=== PATIENT | female | born 1940 | race Caucasian/White ===

== ENCOUNTER 2021-03-24 07:38 | Emergency (ER) | payer MEDICARE ==
[~2021-03-24] VITALS: Ht 160 cm; Wt 58.1 kg
[2021-03-24] MEDS ORDERED: TESSALON PERLE100 MG PO (07:57)
[2021-03-24] MEDS ORDERED: SUDOGEST120 MG PO (07:58)
[2021-03-24] MEDS ORDERED: ADVIL200 M1 PO (07:59)
== END 2021-03-24 11:58 | disposition home or self-care (01) ==
LOC: ED 07:38
DX: U07.1 COVID-19 (principal); Z88.5 Allergy status to narcotic agent
CPT/HCPCS: 80053; 81001; 83735; 85025; 99284-25; C9803; J7040; M0243; Q0244; U0003

== ENCOUNTER 2021-03-26 11:33 | Emergency (ER) | payer MEDICARE ==
[~2021-03-26] VITALS: Ht 160 cm; Wt 58.1 kg
[~2021-03-26 11:33] MED LIST: ADVIL200 M1 PO; SUDOGEST120 MG PO; TESSALON PERLE100 MG PO
[2021-03-26] MEDS ORDERED: ELIQUIS2.5 MG PO (13:15)
== END 2021-03-26 13:40 | disposition home or self-care (01) ==
LOC: ED 11:33
DX: I82.401 Acute embolism and thrombosis of unspecified deep veins of right lower extremity (principal); M79.661 Pain in right lower leg; Z85.3 Personal history of malignant neoplasm of breast; Z88.5 Allergy status to narcotic agent
CPT/HCPCS: 93971; 99283-25

== ENCOUNTER 2023-09-09 08:27 | Inpatient (IN) | payer MEDICARE, OTHER ==
[~2023-09-09] VITALS: Ht 160 cm; Wt 58.6 kg
[~2023-09-09 08:27] MED LIST changes: +ELIQUIS2.5 MG PO
[2023-09-09 08:56] LABS: BILIRUBIN, URINE NEGATIVE (negative); BLOOD/HGB, URINE LARGE (Negative); KETONE, URINE NEGATIVE (Negative); LEUK ESTERASE, URINE NEGATIVE (negative); NITRITE, URINE NEGATIVE (negative); PH, URINE 5.5 (5-7)
[2023-09-09] MEDS ORDERED: ondansetron HCL 4 MG/2 ML VIAL IV ONE (09:00)
[2023-09-09] MEDS ORDERED: SODIUM CHLORIDE 0.9% 1,000 ML IV ONE (09:00)
[2023-09-09 09:03] LABS: BASOPHILS 0.5 % (0-2); EOSINOPHILS 0.1 % (0-6); HEMATOCRIT 46.1 % (35.0-50.0); HEMOGLOBIN 15.5 g/dL (12.0-18.0); LYMPHOCYTES 15.7 % (24-44); MCH 30.8 (27-36); MCHC 33.5 g/dl (30-36); MCV 91.7 fl (81-99); MONOCYTES 5.1 % (0-12); NEUTROPHILS 78.6 % (39-80); PLATELET COUNT 200 K/uL (140-440); RBC 5.02 M/ul (4.3-5.7); RDW 12.7 (10.5-15.0)
[2023-09-09 09:08] LABS: EPITHELIAL CELLS, URINE 0 /lpf (0-1+); REFLEX CULTURE, URINE No (No)
[2023-09-09 09:18] LABS: ALBUMIN 3.7 g/dL (3.4-5.0); ALBUMIN/GLOBULIN RATIO 0.9 (1.1-2.4); ANION GAP 13.5 (7-21); BILIRUBIN, TOTAL 0.6 ng/dL (0.2-1.0); BUN/CREATININE RATIO 18.18 (6.0-28.6); CALCIUM 9.8 mg/dL (8.5-10.1); CREATININE, SERUM 1.1 mg/dL (0.55-1.02); POTASSIUM 3.5 mmol/L (3.5-5.1); PROTEIN, TOTAL 7.8 g/dL (6.4-8.2)
[2023-09-09] MEDS ORDERED: SODIUM CHLORIDE 0.9% 1,000 ML IV SCH (11:15)
[2023-09-09] MEDS ORDERED: HYDROmorphone HCL 1 MG/ML SYR IV PRN ×4 (11:15→16:45)
[2023-09-09] MEDS ORDERED: PIPERACILLIN/TAZOBACTAM 3.375 GM in DEXTROSE 5% 100 ML IV ONE (11:30)
[2023-09-09] MEDS ORDERED: ENOXAPARIN SODIUM 40 MG/0.4 ML SYR SUB-Q ONE (11:30)
[2023-09-09] MEDS ORDERED: ROCURONIUM BROMIDE 50 MG/5 ML SYR ONE (12:16)
[2023-09-09] MEDS ORDERED: propofoL 200 MG/20 ML VIAL ONE (12:16)
[2023-09-09] MEDS ORDERED: LIDOCAINE HCL 2% 5 ML SDV ONE (12:16)
[2023-09-09] MEDS ORDERED: KETAMINE in NS 50 MG/5 ML SYR ONE (12:17)
[2023-09-09] MEDS ORDERED: LIDOCAINE HCL 1% 30 ML SDV ONE (12:17)
[2023-09-09] MEDS ORDERED: DEXAMETHASONE SOD PHOS 4 MG/ML VIAL ONE ×3 (12:44→13:32)
[2023-09-09] MEDS ORDERED: ondansetron HCL 4 MG/2 ML VIAL ONE (12:44)
[2023-09-09] MEDS ORDERED: ACETAMINOPHEN 1,000 MG/100 ML VIAL ONE (12:45)
[2023-09-09] MEDS ORDERED: ePHEDrine sulfate 50 MG/ML AMP ONE (12:56)
[2023-09-09] MEDS ORDERED: SODIUM CHLORIDE 0.9% 20 ML IV ONE ×3 (12:56→13:37)
[2023-09-09] MEDS ORDERED: SUGAMMADEX SODIUM 200 MG/2 ML ML ONE (13:10)
[2023-09-09] MEDS ORDERED: Ropivacaine HCl 0.5% 30 ML VIAL ONE (13:31)
[2023-09-09] MEDS ORDERED: LACTATED RINGER'S 1,000 ML IV ONE (14:16)
[2023-09-09] MEDS ORDERED: BUPIVACAINE HCL 0.25% 50 ML MDV ONE (14:39)
[2023-09-09] MEDS ORDERED: LIDOCAINE 1% W/ EPI 1:200,000 30 ML SDV ONE (14:40)
--- NOTE | 2023-09-09 15:20 | CONS ---
[facility] [address], [place] [address] Signed DATE OF CONSULTATION: 09/09/2023 CHIEF COMPLAINT: Right lower quadrant abdominal pain. HISTORY OF PRESENT ILLNESS: Aleta is an 82-year-old female who has a history of an appendectomy and a hysterectomy for bleeding many years ago. Last night, she developed lower abdominal pain particularly on the right with nausea and vomiting. She got up this morning cooked [place]. She was not feeling better, so she finally came to emergency room for evaluation. She clearly is distended in that right lower quadrant and a little tender but no peritoneal signs or symptoms. It is soft and not particularly indurated. White count was normal. The urine showed an increased specific gravity and some blood. 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 She told me in her mind she has never had any symptoms with that. Therefore, I was asked to see her as a general surgeon on-call. In the meantime, she has received Zosyn and a shot of Lovenox. EKG is pending. PAST MEDICAL HISTORY: Left-sided breast cancer and COVID in 2020 with some blood clots. PAST SURGICAL HISTORY: Includes appendectomy, back surgery, hysterectomy for bleeding, left breast lumpectomy with radiation therapy and then no history of colonoscopy. SOCIAL HISTORY: She does not smoke or drink. She is a . She has three grown children and two step children. 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 She prefers the [facility] in [place], [place]. Her granddaughter is Sammi at [phone], who happens to work in our hospital and Dr. Aldair Farmer is her primary care provider. FAMILY HISTORY: She said there are cancers in the family. REVIEW OF SYSTEMS: She had 10 systems reviewed. She told me about her hysterectomy and the breast cancer and the COVID. ALLERGIES: Morphine and oxycodone. Electronically Signed By: DAMARIS ROMERO MD 09/09/23 1520 PATIENT NAME: ALETA WILEY CONSULTATION DATE OF : 36 REPORT #: [id number] PHYSICIAN: DAMARIS ROMERO MD PCP: ALDAIR FARMER MD REPORT IS CONFIDENTIAL AND NOT TO BE RELEASED WITHOUT AUTHORIZATION [facility] [address], [place] [address] Signed MEDICATIONS: None. PHYSICAL EXAMINATION: VITAL SIGNS: Her blood pressure is 158/78, heart rate is 76, respiratory rate 14, temperature is 98.0. She is 94% on room air. She is 5 feet 3 inches at 58 kg. Her body mass index is 22. GENERAL: Aleta is an 82-year-old female lying supine semi-recumbent in her ER bed. Our nurse and her granddaughter Sammi is with us. She is in no acute distress. She is not systemically ill or toxic. LUNGS: Clear to auscultation bilaterally. HEART: Regular rate and rhythm without murmur. ABDOMEN: Generally soft and flat except for the right lower quadrant where it is distended, but soft, very mildly tender and no peritoneal signs or symptoms. LABORATORY DATA: Her white blood cell count is 7.2, hemoglobin 15, neutrophils 78. Electrolytes unremarkable. BUN 20, creatinine 1.10, albumin 3.7. Liver function tests negative. Urine analysis showed the elevated specific gravity and some blood. RADIOGRAPHIC STUDIES: CT scan of abdomen and pelvis are reviewed along with the report. One can easily see the cecal volvulus. Interestingly, she has a chronically dilated right hydronephrosis with a stone at the UVJ. The radiologist says it has been present on previous x-rays. Apparently though, Aleta is not aware of this kidney stone. ASSESSMENT AND PLAN: Aleta is an 82-year-old female who presents with a cecal volvulus. The issues with the right kidney are chronic. She already has admit orders for room on our [facility] floor. We are going to go right from our ER over to the OR. We will get her laparotomy and right colectomy done shortly. I reviewed with her the surgery and the nature of the incision. She understands expected intraop and postop course. There is risk including, but not limited to bleeding, infection, scarring, change in contour of the skin, damage to bowel, damage to the ureter, damage to the kidney, incisional hernias, blood clots as well as strokes, heart attacks and pneumonia. She has expressed understanding and would like to proceed. Damaris Romero MD ALB/MODL Electronically Signed By: DAMARIS ROMERO MD 09/09/23 1520 PATIENT NAME: ALETA WILEY CONSULTATION DATE OF : 36 REPORT #: [id number] PHYSICIAN: ADMARIS ROMERO MD PCP: ALDAIR FARMRE MD REPORT IS CONFIDENTIAL AND NOT TO BE RELEASED WITHOUT AUTHORIZATION [facility] [address] [address] Signed /[id number] cc: MD Aldair Quinones MD Copies: DAMARIS ROMERO MD, RUSSEL J MD ~ Electronically Signed By: DAMARIS ROMERO MD 09/09/23 1520 PATIENT NAME: ALETA WILEY CONSULTATION DATE OF : 36 REPORT #: [id number] PHYSICIAN: DAMARIS ROMERO MD PCP: ALDAIR FARMER MD REPORT IS CONFIDENTIAL AND NOT TO BE RELEASED WITHOUT AUTHORIZATION
[2023-09-09] MEDS ORDERED: CEFTRIAXONE/SODIUM CHLORIDE 2 GM/100 ML PIGGYBACK IV SCH (15:27)
[2023-09-09] MEDS ORDERED: DEXTROSE 5% - LACTATED RINGERS 1,000 ML IV SCH ×2 (15:30→16:45)
[2023-09-09] MEDS ORDERED: IBLOOD GLUCOSE TEST STRIP 1 EA TEST VI PRN (15:30)
[2023-09-09] MEDS ORDERED: fentaNYL citrate 100 MCG/2 ML VIAL IV PRN (15:30)
[2023-09-09] MEDS ORDERED: ACETAMINOPHEN 650 MG SUPP PR PRN (15:30)
[2023-09-09] MEDS ORDERED: ACETAMINOPHEN 325 MG TAB PO PRN (15:30)
[2023-09-09] MEDS ORDERED: PROCHLORPERAZINE EDISYLATE 10 MG/2 ML VIAL IV PRN ×2 (15:30)
[2023-09-09] MEDS ORDERED: ondansetron HCL 4 MG/2 ML VIAL IV PRN ×3 (15:30→16:45)
[2023-09-09] MEDS ORDERED: PANTOPRAZOLE SODIUM 40 MG/10 ML VIAL IV SCH (15:30)
[2023-09-09] MEDS ORDERED: droPERidol 5 MG/2 ML VIAL IV PRN (15:30)
[2023-09-09] MEDS ORDERED: LIDOCAINE 2% VISCOUS 6 ML SYR TOP ONE (15:30)
[2023-09-09] MEDS ORDERED: NALOXONE HCL 0.4 MG SYR IV PRN (15:30)
--- NOTE | 2023-09-09 15:32 | NUR ---
09/09/23 1532 Sheets,Pratibha 1511 PT ARRIVED TO PACU ON 6L VIA MASK, ORAL AIRWAY IN PLACE AND RESP EVEN AND UNLABORED. PT NONAROUSABLE TO TACTILE STIMULI. VSS.
[2023-09-09 16:44] VITALS: BP 125/56
--- NOTE | 2023-09-09 16:52 | NUR ---
PT ARRIVED FROM SURGERY AT 1615, REPORT RECEIVED FROM STIVEN Real. PT RESTING AND DROWSY AT THIS TIME. CONTINUOUS PULSE OXIMETRY IN PLACE. FAMILY PRESENT UPON PT ENTERING ROOM BUT MOST LEFT SHORTLY AFTER ARRIVING. IV ABX STARTED. SCDS IN PLACE. RC EMPTIED UPON COMING TO ROOM, THERE IS A LITTLE CLEAR YELLOW URINE. ICE PACK IN PLACE TO ABDOMINAL SITE AT THIS TIME, DSG TO MIDLINE, CDI. PT REMAINS NPO AT THIS TIME. BED ALARM IN PLACE. CALL LIGHT WITHIN REACH. ALL PT CARE NEEDS MET AT THIS TIME, ALLOWING PT TO REST AT THIS TIME.
--- NOTE | 2023-09-09 17:19 | NUR ---
PT RESTING STILL AT THIS TIME. MORE ALERT BUT STILL VERY DROWSY. IV ABX COMPLETE, SWITCHED TO MAINTENANCE FLUIDS. BED ALARM REMAINS IN PLACE. CALL LIGHT WITHIN REAACH. GRANDDAUGHTER PRESENT AT BEDSIDE AT THIS TIME. REQUESTED WARM BLANKETS, HEAT TURNED UP. PT RESTING AT THIS TIME.
[2023-09-09 17:31] VITALS: BP 135/63
[2023-09-09 17:32] VITALS: BP 135/63
[2023-09-09 18:41] VITALS: BP 146/74
[2023-09-09 18:45] VITALS: BP 146/74
--- NOTE | 2023-09-09 18:52 | NUR ---
PT RESTING IN BED, MORE ALERT AT THIS TIME. COMPLETED ADMISSION INFORMATION WITH PATIENT. GRANDDAUGHTER HÉCTOR REMAINS IN THE ROOM AT BEDSIDE. EDUCATED PT THAT WHEN SHE STARTS FEELING PAIN TO PLEASE LET US KNOW SO WE CAN HELP KEEP HER PAIN UNDER CONTROL. INFORMED ALSO NPO THIS EVENING UNTIL MD CLEARS HER TO ADVANCE DIET. IV FLUIDS INFUSING. CALL LIGHT WITHIN REACH. VS STABLE. ALL PT CARE NEEDS MET AT THIS TIME.
--- NOTE | 2023-09-09 19:16 | NUR ---
Patient with eyes closed, appears comfortable, no distress, RR even and unlabored, report provided by cris OTTO.
[2023-09-09 19:35] VITALS: BP 134/64
--- NOTE | 2023-09-09 20:05 | NUR ---
Patient resting and awakes to voice, no complaints, states she does not hurt, VSS, Abdominal midline dressing intact, clean and dry, BT's hypoactive, patient denies nause, stubbs intact below level of bed, IV fluids infusing @ 00/h, SCD's on , Remains NPO. Continous pulse Ox on with sats >95%. call light within reach.
--- NOTE | 2023-09-09 22:13 | NUR ---
Patient continues resting with eyes closed, appears comfortable, no noted distress, rr even and unlabored, lights off, call light with in reach.
[2023-09-10] VITALS (9 sets, daily range): BP systolic 122–170; BP diastolic 52–79
--- NOTE | 2023-09-10 00:14 | NUR ---
Patient continues to rest with eyes closed, appears comfortable, no noted distress, RR even and unlabored, call light within reach.
--- NOTE | 2023-09-10 01:52 | NUR ---
Patient sleeping between care, VSS, starting to feel some discomfort in abdomine, requested and given pain medication. abd. dressing clean, dry and intact. stubbs intact and secured below the level of the bed. given a warm blanket and going back to sleep, verbalizing no further needs at this time.
--- NOTE | 2023-09-10 04:33 | NUR ---
Patient resting with eyes closed, appears comfortable, continous pulse ox maintaining >95%. RR even and unlabored. call light within reach.
[2023-09-10 05:31] LABS: BASOPHILS 0.3 % (0-2); HEMATOCRIT 39.4 % (35.0-50.0); HEMOGLOBIN 13.2 g/dL (12.0-18.0); LYMPHOCYTES 5.4 % (24-44); MCH 30.6 (27-36); MCHC 33.5 g/dl (30-36); MCV 91.5 fl (81-99); MONOCYTES 4.3 % (0-12); PLATELET COUNT 161 K/uL (140-440); RBC 4.31 M/ul (4.3-5.7)
--- NOTE | 2023-09-10 05:46 | NUR ---
Patient awake, VSS, Abominal dressing remains clean, dry and intact, Patient denies need for pain medication at this time. no noted distress, RR even and unlabored. call light withiin reach. Patient verbalizing no further needs at this time.
[2023-09-10 05:51] LABS: ANION GAP 12.7 (7-21); BUN/CREATININE RATIO 12.63 (6.0-28.6); CALCIUM 8.5 mg/dL (8.5-10.1); CREATININE, SERUM 0.95 mg/dL (0.55-1.02); MAGNESIUM 1.6 mg/dL (1.8-2.4); POTASSIUM 3.7 mmol/L (3.5-5.1)
--- NOTE | 2023-09-10 07:25 | EKG ---
[facility] [address] [facility] [place] [address] Signed Normal sinus rhythm Minimal voltage criteria for LVH, may be normal variant ( R in aVL ) Inferior infarct , age undetermined Anterolateral infarct , age undetermined Abnormal ECG No previous ECGs available Confirmed by NASIM ESPINOZA MD ([id number]) on 09/10/2023 7:25:38 AM Electronically Signed By: NASIM ESPINOZA 09/10/23 0725 PATIENT NAME: TAMMYANGELALETA Electrocardiogram DATE OF : 36 PHYSICIAN: NASIM ESPINOZA REPORT #: [id number] REPORT IS CONFIDENTIAL AND NOT TO BE RELEASED WITHOUT AUTHORIZATION
--- NOTE | 2023-09-10 08:13 | NUR ---
INTO TO PATIENT ROOM, PATIENT IN SUPINE POSITION, APPEARS TO BE GRITTING TEETHE. PATIENT COMPLAINED OF PAIN 7/10 ON PAIN SCALE. REPORTED DRY MOTH AND LIPS. ADMINISTERED PAIN MEDICATION PER OCT. DRESSING TO ABD C/D/I. BOWEL TONES HYPOACTIVE. PATIENT REPORTS SHE HAS NOT PASSED ANY GAS. CARO DRAINING CLEAR URINE TO BAG. PROVIDED SWAB AND WATER TO MOISTEN MOUTH. CALL LIGHT WITHIN REACH. NO OTHER NEEDS AT THIS TIME.
--- NOTE | 2023-09-10 08:28 | OR ---
[facility] [address], [place] [address] Signed DATE OF OPERATION: 09/09/2023 SURGEON: Damaris Romero MD PREOPERATIVE DIAGNOSIS: Cecal volvulus. POSTOPERATIVE DIAGNOSIS: Cecal volvulus. PROCEDURE: Ileocecectomy with end-to-end anastomosis hand-sewn in two layers. ESTIMATED BLOOD LOSS: Minimal. FINDINGS: Aleta indeed had a previous hysterectomy and the cecum had been scarred down to the fimbriae and there was a band of scar tissue on the proximal right colon resulting in the cecal volvulus. The right colon was decompressed and the proximal ileum was just a little dilated and therefore we decided to do an end-to-end anastomosis. 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 Yesterday night, she had this abrupt feeling of pain and swelling in her right lower quadrant. She had nausea and vomiting. She got up this morning, cooked breakfast for the crew. She was still having pain and swelling, so she came to the emergency room for evaluation. She is a little swollen in that area, but not overly tender and no peritonitis. White count was normal. CT scan of the abdomen and pelvis showed her cecal volvulus. She also has a chronically dilated right kidney with a stone at the UVJ. I have been asked to see her in the emergency room. In the meantime, she received a dose of Zosyn and Lovenox. I met with Aleta and her granddaughter, Sammi. We reviewed the above findings. I explained them the need for midline laparotomy with resection of the bowel and anastomosis. They understand the expected intraop and postop course. There is risk including, but not limited to bleeding, infection, scarring, change in contour of the skin, damage to bowel, anastomotic leak, incisional hernias and other unforeseen comorbidities. She had expressed understanding and wished to proceed. DESCRIPTION OF PROCEDURE: Electronically Signed By: DAMARIS ROMERO MD 09/10/23 0828 PATIENT NAME: ALETA WILEY OPERATIVE REPORT DATE OF : 36 REPORT #: [id number] PHYSICIAN: DAMARIS ROMERO MD PCP: ALDAIR FARMER MD REPORT IS CONFIDENTIAL AND NOT TO BE RELEASED WITHOUT AUTHORIZATION [facility] [address] [place] [id number] Signed Aleta was taken into the operating room and placed in the supine position under general endotracheal tube anesthesia. Velez catheter was inserted with return of clear yellow urine without difficulty. She was already on IV Zosyn and had been given Lovenox subcutaneously. SCDs were utilized. She was then prepped and draped in the usual sterile fashion. We used a previous periumbilical midline incision from her hysterectomy. We entered the upper abdomen without difficulty. She had a few adhesions of the omentum to the midline, which were taken down. She had a few adhesions in the right gutter as well as the left gutter. There was just a slight cautery injury on the sigmoid colon along the distal portion of the left white line of Toldt. I freed that up and we oversewed that in two layers with 3-0 Vicryl and 3-0 silk sutures. After this, we brought the cecum up and we could see the band of scar tissue from the fimbriae on her right fallopian tube. We divided the adhesions and we just freed up the cecum and a little bit of terminal ileum. Her right colon was nicely adherent to the white line of Toldt on the right side. We divided the colon close to the white line of Toldt with the linear stapler. We then divided the ileum very close to ileocecal valve with a linear stapler. We took down the small amount of mesentery with Pean clamps and 0 Vicryl ties. There was very little discrepancy between the ileum and the right colon. We decided to bring that together end-to-end in two layers with Vicryl and silk sutures. We closed the mesenteric rent with a running 3-0 Vicryl suture. The abdomen was irrigated and suctioned out until clear. We allowed the small bowel to rest back in its position and that short piece of proximal right colon. The rest of the right colon is adherent to the white line of Toldt. After this, we closed the midline fascia with interrupted #1 [id number] PDS sutures. Local anesthetic was injected at the umbilicus and above. We then irrigated the wound and suctioned out until clear. We closed the dermis with interrupted 3-0 Monocryl sutures. The skin edges were reapproximated with tr. Our anesthesia provider provided bilateral TAP blocks. Dry gauze and tape had been applied. We left the Velez catheter in place. She was awakened from her anesthesia, extubated in the OR, and taken to the recovery room in stable condition. Damaris Romero MD ALB/MODL /[id number] cc: Aldair Farmer MD Electronically Signed By: DAMARIS ROMERO MD 09/10/23 0828 PATIENT NAME: ALETA WILEY OPERATIVE REPORT DATE OF : 36 REPORT #: [id number] PHYSICIAN: DAMARIS ROMERO MD PCP: ALDAIR FARMER MD REPORT IS CONFIDENTIAL AND NOT TO BE RELEASED WITHOUT AUTHORIZATION [address] [address] Signed Damaris Romero MD Copies: ALDAIR FARMER MD, ANDREW L MD ~ Electronically Signed By: DAMARIS ROMERO MD 09/10/23 0828 PATIENT NAME: ALETA WILEY OPERATIVE REPORT DATE OF : 36 REPORT #: [id number] PHYSICIAN: DAMARIS ROMERO MD PCP: ALDAIR FARMER MD REPORT IS CONFIDENTIAL AND NOT TO BE RELEASED WITHOUT AUTHORIZATION
[2023-09-10] MEDS ORDERED: MAGNESIUM SULFATE 2 GM/50 ML BAG IV ONE (08:30)
[2023-09-10] MEDS ORDERED: ENOXAPARIN SODIUM 40 MG/0.4 ML SYR SUB-Q SCH (09:00)
[2023-09-10] MEDS ORDERED: MAGNESIUM SULFATE 50 ML IV ONE (11:01)
--- NOTE | 2023-09-10 11:52 | NUR ---
LE 1000 STARTED NEW IV TO RIGHT HAND, 20 G. ADMINISTERING MULTIPLE IV FLUIDS, ANTIBIOTICS AND MAG RIDER PER MAR TO BOTH IV SITES. PATIENT TOLERATED IV FLUIDS WELL. IV DIALUDID APPEARS TO ONLY LAST FOR ABOUT AN HOUR AND HALF BEFORE REPORTING PAIN THAT BECOMES SHARP AND UNTOLERABLE. ADMINISTERED PAIN MEDICATION PER MAR. LE 1045 PATIENT UP TO SIDE OF BED, CARO DC'D. DRAINED 100 ML OF YELLOW URINE FROM BAG. PROVIDED EDUCATION WITH DC OF CARO CATHETER. BRIEF APPLIED TO PATIENT THEN PATIENT UP TO RECLINER. 1130 PROVIDED EDUCATION TO PATIENT COUGHING AND DEEP BREATHING. AND SPLINTING WITH A PILLOW. PATIENT DEMONSTRATED UNDERSTANDING WITH IS.
--- NOTE | 2023-09-10 14:30 | NUR ---
NURSE WALKED TWO LAPS AROND MED SURG. WITH PATIENT.
--- NOTE | 2023-09-10 15:42 | NUR ---
ADMINISTERED 0.5MG OF IV DILAUDID, PATIENT UP AMBULATING IN AHN. APPEARS EXTRA HAPPY, AND UNABLE TO KEEP ATTENTION ON TASK. INCREASES FALL RISK. BLADDER SCAN 40-60MLS. PATIENT RESTING BACK IN RECLINER, REPORTS PAIN WELL CONTROLLED.
--- NOTE | 2023-09-10 16:00 | NUR ---
CALL TO DR. ROMERO, NEW ORDERS TO INCREASE D5LR TO 125ML, AND IV TYLENOL. NO BOLUS SECONDARY TO HISTORY OF NEPHRECTOMY.
[2023-09-10] MEDS ORDERED: ACETAMINOPHEN 1,000 MG/100 ML VIAL IV PRN (16:15)
--- NOTE | 2023-09-10 16:57 | NUR ---
Admin ofirmev 1000mg IV at this time for reports of 6/10 abdominal pain.
--- NOTE | 2023-09-10 17:00 | NUR ---
PATIENT AMBULATED IN HALLS X2 LAPS. TOLERATED WELL. IV TYLENOL APPEARS EFFECTIVE. PATIENT STATED " I AM SORE, BUT NOT LIKE I WAS THIS MORNING, I THINK WALKING IS REALLY HELPING". STBY IN THE HALLS WITH WALKER. CALL LIGHT WITHIN REACH. NO OTHER NEEDS, SITTING UP IN RECLINER. DAUGHTER AT BEDSIDE. ANSWERED DAUGHTERS QUESTIONS AND ADDRESSED CONCERNS. REASSURED DAUGHTER THAT BY GETTING PATIENT UP AND WALKING WOULD HELP WITH RECOVERY, GI MOTILITY, AND PRODUCING URINE OUTPUT. PATIENT CONTINUING TO USE INCENTIVE SPIROMETER, NOTED PATIENT APPEARS TO BE ABLE TO TAKE DEEPER BREATHS, NOW ABLE TO ELEVATE WAFER TO 1200.
--- NOTE | 2023-09-10 18:05 | NUR ---
PATIENT RESTING BACK IN BED, APPEARS CALM AND CONVERSING WITH FAMILY LAUGHING. RATES PAIN 2/10 ON PAIN SCALE. USING INCENTIVE SPIROMETER 1000 ML ELEVATING WAFER. LUNG SOUNDS CLEAR THROUGHOUT. BOWEL SOUNDS ACTIVE RIGHT SIDE GREATER THAN LEFT, NO FLATUS. PATIENT HAS AMBULATED IN HALLS X3 TODAY, STEADY ON FEET WITH WALKER TOLERATING WELL. D5LR INFUSING AT 125 ML/HR. BLADDER SCAN >80 ML, PATIENT VERBALIZES NO URGE TO VOID. CONTINUE TO MONITOR. MIDLINE SURGICAL SITE TO ABDOMEN OPEN TO AIR WITH MARITA INTACT, WNL. VS WNL. FAMILY AT BEDSIDE.
--- NOTE | 2023-09-10 19:28 | NUR ---
CALL TO DR. ROMERO, REPORTED PATIENT CONTINUES TO BE DUE TO VOID. REPORTED LAST BLADDER SCAN OF >80 MLS. NEW ORDER FOR LR BOLUS 1 LITER @250 MLS/HR TO INFUSE OVER 4 HOURS.
[2023-09-10] MEDS ORDERED: LACTATED RINGER'S 1,000 ML IV SCH (19:30)
--- NOTE | 2023-09-10 20:37 | NUR ---
awake, in bed, on room air, clear lungs. IVF and bolus infusing, no problems, still unable to void. will do bladder scan at 2200. Pt aware. midline abd incision with tr in place, edges well approximated slight red around tr sites. homa, louder on R than left, monica passing gas. tender R side. Medicated with Dilaudid 1mg IV per c/o abd pain. SCDS in place. cooperative, alert and oriented. family in room. Bed alarm placed on as precaution. pt and family aware. NPO, does own mouth care. IV site RW patent.
--- NOTE | 2023-09-10 21:38 | NUR ---
awake, denies c/o pain, watching tv. IVF infusing
--- NOTE | 2023-09-10 23:05 | NUR ---
BED ALRM GOING OFF, PT PULLING ON IVF TUBING, LEGS IN DEPENDENT POSITION, SCDS IN PLACE. PT INSTRUCTED ON IV/SCDS TUBING AND FALL PRECAUTIONS. STATED UNDERSTANDING. SLIGHT FORGETFULNESS NOTED. RECEPTIVE TO INSTRUCTIONS, LEANING TOWARS RIGHT, TRYING TO REACH FOR SOMETHING. BSC, VOIDED, 350CC YELLOW COLORED URINE. DID OWN JOYCE CARE. BACK TO BED, TOLERATED WELL. IVF INFUSING, SCDS BACK ON. BED ALRM ON. PT DROPPED ICE HIPS/WATER TO FLOOR, SEEMED UNAWARE, REORIENTED, PT APOLOGETIC, INSTRUCTED THAT IT HAPPENED SOMETIMES, FRESH ICE CUBES GIVEN. REACAHING FOR CALL LIGHT TRYING TO TURN OFF TV. TV CONTROL GIVEN AND WAS BLE TO TURN IT OFF HERSELF. PT AWARE OF NAME, PLACE AND SITUATION. REORIENTS EASILY. NPO, DOES OWN ORAL CARE, CONTINUE TO OBSERVE AND WILL NOTIFY MS IN AM POSSIBLE FORGETFULNESS DUE TO IV MED
[2023-09-11] VITALS (7 sets, daily range): BP systolic 131–175; BP diastolic 61–95
--- NOTE | 2023-09-11 01:36 | NUR ---
RSTING, EYES CLOSED, NO S/SX DISTRESS, ON ROOM AIR. IVF INFUSING. SCDS IN PLACE. BED ALRM ON PER FALL PRECAUTION. NPO
--- NOTE | 2023-09-11 03:22 | NUR ---
resting, on room air, no s/sx distress. IVF infusing, SCDS in place. NPO
--- NOTE | 2023-09-11 04:38 | NUR ---
Used call light, up to BRP 1PA/FWW, did much better. voided QS, yellow urine. Back to bed. C/o 03/17 ab dpain. midline abd insicion with tr in place, pinkish-reddish coloring CDI. mild distention more on R than L, lower abd. JESSICA more quiet tones than earlier in shift, denies passing gas. Medicated with Dilaudid 1mg IV. scds on, IVF infusing. Pleasant and cooperative. warm blanket given on request.
[2023-09-11 05:33] LABS: ANION GAP 10.1 (7-21); BUN/CREATININE RATIO 13.04 (6.0-28.6); CALCIUM 8.2 mg/dL (8.5-10.1); CREATININE, SERUM 0.92 mg/dL (0.55-1.02); PHOSPHORUS, INORGANIC 2.8 mg/dL (2.5-4.9); POTASSIUM 4.1 mmol/L (3.5-5.1)
--- NOTE | 2023-09-11 06:57 | NUR ---
DR ESPINOZA IN UNIT. ASKED ABOUT MEWS SCORE OF THIS PT. " NO NEED FOR LABS. NO NEED TO FOLLOW MEWS SCORE, PT IS DNR/DNI, SHE HAS MORPHINE FOR AIR HUNGER, HER SATS ARE WNL, WE JUST DO NOT KNOW WHY SHE IS TACHEIPNEIC, SHEIS ON ABX." CHARGE NURSE LISTENING TO THIS
--- NOTE | 2023-09-11 07:46 | NUR ---
GOT REPORT FROM DIRECTOR OF BUSINESS SYSTEMS NURSE. PATIENT HAS FAMILY IN THE ROOM. PATIENT LAYING IN BED. DENIES PAIN. DENIES ANY OTHER CARES AT THIS TIME. PATIENT WOULD LIKE TO FIND OUT WHEN SHE WILL BE ABLE TO EAT ANYTHING. PATIENT HAS IV FLUIDS RUNNING. PATIENT GIVEN HALF CUP OF ICE CHIPS.PATIENT HAS SCDS ON AND RUNNING. BED ALARM ON, BED IN LOW POSITION.
--- NOTE | 2023-09-11 10:25 | NUR ---
PATIENT REQUESTING PAIN MEDICATIONS. SHE IS HAVING PAIN WITH ANY MOVEMENT. SEE EMAR. PATIENT WOULD LIKE TO TAKE A NAP AND THEN TRY TO WALK. FAMILY LEFT SO PATIENT COULD SLEEP. PATIENT HAS IV ANTIBIOTICS RUNNING. DENIES ANY CARES AT THIS TIME.
--- NOTE | 2023-09-11 12:04 | NUR ---
PATIENT CURRENTLY SLEEPING IN BED. FAMILY IN ROOM. REGULAR RESPIRATIONS NOTED.
--- NOTE | 2023-09-11 13:14 | NUR ---
FAMILY IN ROOM WITH PATIENT. PATIENT SLEEPING, REGULAR RESPIRATIONS NOTED.
--- NOTE | 2023-09-11 13:47 | NUR ---
Tylenol started via IV for pain. Patient has multiple family members in room. Patient made 2 laps around the med surg floor. Denies any cares at this time.
--- NOTE | 2023-09-11 15:46 | NUR ---
PATIENT MOVED BACK INTO BED. PATIENT STATES PAIN HAS IMPROVED TO A 3/10 SINCE HAVING THE TYLENOL. PATIENT HAS ICE CHIPS AT BEDSIDE. PATIENT IS READY FOR NAP FAMILY IS LEAVING. SCDS ARE BACK ON.
--- NOTE | 2023-09-11 17:44 | NUR ---
PATIENT CALLED TO GO TO THE RESTROOM. PATIENT UP AND USED WALKER, NO CONCERNS. PATIENT TOOK ONE LAP AROUND MED SURG, TOLERATED GREAT BEFORE GETTING BACK IN BED. SCDS BACK ON. PATIENT DENIES ANY OTHER CARES. SHE IS GOING TO GO BACK TO SLEEP. LIGHTS TURNED DOWN.
--- NOTE | 2023-09-11 18:42 | NUR ---
PATIENT TALKING TO FAMILY IN THE ROOM. SHE HAS IV FLUIDS RUNNING. DENIES ANY CARES.
--- NOTE | 2023-09-11 19:26 | NUR ---
REPORT RECEIVED FROM HANNAH. PT AWAKE, IVF INFUSING. HAD JUST GOT UP TO BR A FEW MINUTES AGO, VOIDED BRP, BACK TO BED SBA/FWW, NO C/O PAIN OR SOB. NOT PASSING GAS. BACK IN BED, SCDS IN PLACE. NPO TOLERATING ICE CHIPS. FAMILY IN ROOM
--- NOTE | 2023-09-11 19:43 | NUR ---
c/o 02/14 abd pain, medicated with Dilaudid 1mg IV
--- NOTE | 2023-09-11 21:12 | NUR ---
COOPERATIVE WITH VITALS, NO FURTHER C/O PAIN. OR N/V. IVF INFUSING, SCDS IN PLACE, MIDLINE ABD INCISIN WITH MARITA SLIGHT REDNESS AROUND INCISION. BURPING BUT DENIES PASSING RECTAL GAS, HAD VOIDED EARLIER.
--- NOTE | 2023-09-11 23:17 | NUR ---
RESTING, NO DISTRESS, IVF INFUSING
--- NOTE | 2023-09-11 23:19 | NUR ---
RESTING, NO DISTRESS, IVF INFUSING
--- NOTE | 2023-09-12 01:36 | NUR ---
PATIENT CALLED TO USE THE BATHROOM. 1 SBA USING WALKER. FRESH PULL UPS PROVIDED. PATIENT IS BACK IN BED. WARM BLANKET PROVIDED. SCD'S BACK ON. DENIES FURTHER NEEDS AT THIS TIME. BED ALARM ON FOR SAFETY.
--- NOTE | 2023-09-12 02:51 | NUR ---
PT AWAKES EASILY, TURNS AND REPOSITIONS SELF IN BED. IVF INFUSING, NO C/O PAIN. AND INCISION NO CHANGS, BURPING BUT DENIES PASSING RECTAL FLATUS. SLIGHT ABD DISTENTION PRESENT. BOWEL TONES HYPOACTIVE AND MORE DISTANT THAN EARLIER ON SHIFT. VOIDING QS, SCDS IN PLACE
[2023-09-12 04:04] VITALS: BP 174/74
--- NOTE | 2023-09-12 04:12 | NUR ---
used call light, up tobr, voided QS, yellow urine, back to bed !PA/FWW. noted that R hand was swollen. and leaking from IV insertion site. dc'd tip intact, 2x2 in place. changed to RAC SL now being used as continuous . arm elevated with pillows. COoperative, no c/o pain
--- NOTE | 2023-09-12 05:19 | NUR ---
pt c/o abd pain after sneezing. medicated with Dilaudid 0.5mg IV. Has been medicated total of 2 times with dilaudid this shift per abd pain. On room air, burping but not passing rectal flatus yet, abd midline incision with tr and reddish edges CDI. faint hypoactive bowel tones present. scds, IVF infusing. no c/o n/v. has walked to br 1PA/FWW tolerated well. pleasant, alert oriented, cooperative.
--- NOTE | 2023-09-12 05:25 | NUR ---
PATIENT GOT UP TO USE THE BATHROOM SBA USING WALKER AND BACK TO BED. ALARM ON FOR SAFETY. LAB WAS IN THE ROOM TO DRAW BLOOD.
[2023-09-12 05:34] LABS: BASOPHILS 0.2 % (0-2); EOSINOPHILS 1.6 % (0-6); HEMATOCRIT 38.2 % (35.0-50.0); HEMOGLOBIN 12.8 g/dL (12.0-18.0); LYMPHOCYTES 20.7 % (24-44); MCH 30.9 (27-36); MCHC 33.6 g/dl (30-36); MCV 91.9 fl (81-99); MONOCYTES 7.3 % (0-12); NEUTROPHILS 70.2 % (39-80); PLATELET COUNT 148 K/uL (140-440); RBC 4.16 M/ul (4.3-5.7)
[2023-09-12 05:47] LABS: ANION GAP 12.4 (7-21); BUN/CREATININE RATIO 6.89 (6.0-28.6); CALCIUM 8.3 mg/dL (8.5-10.1); CREATININE, SERUM 0.87 mg/dL (0.55-1.02); MAGNESIUM 1.8 mg/dL (1.8-2.4); PHOSPHORUS, INORGANIC 2.7 mg/dL (2.5-4.9); POTASSIUM 3.4 mmol/L (3.5-5.1)
[2023-09-12] MEDS ORDERED: MAGNESIUM SULFATE 2 GM/50 ML BAG IV ONE (06:15)
[2023-09-12] MEDS ORDERED: POTASSIUM CHLORIDE 40 MEQ,LIDOCAINE HCL 1% 40 MG in DEXTROSE 5% 500 ML IV ONE (06:15)
--- NOTE | 2023-09-12 06:23 | NUR ---
dr Sandhu in room. new orders to decrease IVF to 100cc/hr done at this time, mag paz started. pt informed, no questions asked
--- NOTE | 2023-09-12 07:34 | NUR ---
PT SITTING UP IN THE CHAIR DOING SELF CARE AT TIME OF SHIFT REPORT. AGREES SHE IS COMFORTABLE HAS NEEDED ITEMS IN REACH.
[2023-09-12 09:41] VITALS: BP 174/82
--- NOTE | 2023-09-12 10:06 | NUR ---
PT HAS BEEN UP TO TOILET X2 THIS SHIFT, CALLS APPROPRIATELY. IV SITE WENT BAD NEW ONE ESTABLISHED ABX RUNNING NOW. PT DOES HER OWN ORAL AND PERSONAL CARES DENIES NEED OF OTHER ITEMS. AGREES SHE WILL AMBULATE THIS SHIFT SEVERAL TIMES. DENIES PAIN WHILE RESTING STILL IN BED STATES SHE HURTS WITH MOVEMENT.
--- NOTE | 2023-09-12 11:00 | NUR ---
UR NOTE [facility]CG BOWEL SURGERY: SMALL INTESTINE RESECTION (ISC) 09/09/23 MET CLINICAL INDICATIONS FOR PROCEDURE GL DAY 1 09/10/23 MET GL DAY 2 09/11/23 VARIANCE GL DAY 3 09/12/23 VARIANCE GL DAY 3
--- NOTE | 2023-09-12 11:07 | NUR ---
ROUNDS. PT EXPRESSED POSITIVE ATTITUDE AND GOOD UNDERSTANDING OF PLAN OF CARE. FACILITATED STORY-TELLING; LISTENED EMPATHETICALLY; PROVIDED HOSPITALITY; PROVIDED SILETN PRAYER.
--- NOTE | 2023-09-12 11:15 | NUR ---
Spoke with Gricel. She [place] She is active and plans on dc to home. She lives alone, states her grandson and ranch hands all live near and will assist her. She also states her daughter will stay with her. She denies need for any DME and also denies any financial issues. Her granddaughter works here. She stopped by and stated concern for pt to go home alone. She did say her mom with stay with pt when she discharges. No needs from CM at this time. Pt states she may have to return to surgery.
--- NOTE | 2023-09-12 11:50 | NUR ---
PT UP TO THE TOILET THEN AMBULATES 6 FULL LAPS IN THE AHN. RETURNS TO REST IN THE RECLINER, AGREES SHE IS COMFORTABLE. CALL LIGHT AND NEEDED ITEMS AT CHAIRSIDE
[2023-09-12 13:25] VITALS: BP 169/77
--- NOTE | 2023-09-12 13:53 | NUR ---
PT CONTINUES IN THE CHAIR VISITORS PRESENT X2, DENIES NEED OF ANYTHING
--- NOTE | 2023-09-12 14:15 | NUR ---
PT FROM CHAIR TO TOILET SBA, RETURNS TO BED TO REST FOR TIME. FAMILY PRESENT X1
--- NOTE | 2023-09-12 15:58 | NUR ---
PT UP TO AMBULATE THE HALLS. 6 LAPS WELL TOLERATED NO C/O PAIN
[2023-09-12 17:26] VITALS: BP 165/69
--- NOTE | 2023-09-12 17:32 | NUR ---
PT UP TO AMBULATE AGAIN. SHE TOLERATES 6 LAPS IN THE AHN THEN RETURNS TO BED. VISITOR PRESENT X1
--- NOTE | 2023-09-12 18:54 | NUR ---
PT UP AMBULATING THE AHN WITH HER GRANDDAUGHTER
[2023-09-12 19:44] VITALS: BP 166/81
--- NOTE | 2023-09-12 20:03 | NUR ---
pt was walking hallways at begining of shift 1PA/FWW, did 6 laps, back to bed. C/o abd pain 4/10 medicated with Dialudid 0.5mg IV. IVF infusing RAC, intact. On room air, midline abd incision with tr pinkish colored around incision. CDI, no drainage. JESSICA bowel tones, more louder on RLQ. not passing rectal flatus, c/o burping. NPO does own oral care. voiding prior to getting into bed. SCDS off at her requests. no edema to R hand, improved. Pleasant and cooperative. Family in room
--- NOTE | 2023-09-12 23:51 | NUR ---
PT USED CALL LIGHT, UP TO BRP, VOIDED, BACK TO BED 1PA/FWW, IVF INFUSING, SCDS IN PLACE, NO FURTHER C/O PAIN, NOT PASSING GAS
[2023-09-13] VITALS (9 sets, daily range): BP systolic 148–186; BP diastolic 67–84
--- NOTE | 2023-09-13 01:00 | NUR ---
PATIENT USED THE CALL LIGHT. WAS UP TO THE BATHROOM AND BACK TO BED SBA USING WALKER. DENIES OTHER NEEDS AT THIS TIME. CALL LIGHT WITHIN REACH. BED ALARM ON FOR SAFETY.
--- NOTE | 2023-09-13 01:36 | NUR ---
Resting, eyes closed, onroom air, no s/sx distress. IVF infusing. SCDS off her requests earlier.
--- NOTE | 2023-09-13 02:00 | NUR ---
WAS UP TO THE BATHROOM SBA AND BACK TO BED. PATIENT C/O NOT ABLE TO GET SLEEP. PRIMARY RN WAS IN THE ROOM.
--- NOTE | 2023-09-13 02:06 | NUR ---
Used call light, up to brp, voided, backa to bed, 1PA/FWW. c/o abd pain. midline incision no changes, JESSICA all quads, soft, tender, mild distention lower abd. not passing flatus rectally yet. Medicated with 1mg IV Dilaudid per abd pain, crampng and "so I can go to sleep" pt stated. NPO does own oral care, tolerating well.
--- NOTE | 2023-09-13 03:44 | NUR ---
Resting, eyes closed. no s/sx distress, IVF infusing, turns self in bed.
--- NOTE | 2023-09-13 05:46 | NUR ---
Pt has slept off and on this shift. On room air, Up to br several times, voiding QS, not passing gas, lower abd slight distention. midline abd incision with tr, pinkish colored around incision, CDI. bowel tones timpanic and hypoactive RLQ. not passing rectal flatus. Has been medicated with DIlaudid 2x's per abd pain. NPO does own oral care, tolerating well, no n/v. effective. IVF infusing. Alert, oriented, cooperative, 1PA. family in room
--- NOTE | 2023-09-13 08:06 | NUR ---
PT SITTING UP IN CHAIR THIS MORNING DURING MORNING ROUNDS. GRANDDAUGHTER WAS ALREADY PRESENT THIS MORNING AND WALKED WITH PT IN HALLWAYS PT REPORTS. IV FLUIDS INFUSING AT THIS TIME. DENIES PAIN AT THIS TIME. PT INFORMED SHE WILL MOST LIKELY BE GOING TO SURGERY LATER THIS AFTERNOON, WILL HAVE AN UPDATED TIME IT GETS CLOSER. PT REMAINS NPO AT THIS TIME FOR SURGERY. PT DENIES FLATUS, BURPING. ALL PT CARE NEEDS MET AT THIS TIME, CALL LIGHT WITHIN REACH.
--- NOTE | 2023-09-13 08:30 | NUR ---
Pt. walked to bathroom with fww. Denies needs at this time after being returned to bed. 400 ml of clear yellow urine.
--- NOTE | 2023-09-13 09:56 | NUR ---
PT RESTING IN BED. IV ABX INFUSING. STUDENT ASSISTED UP TO BATHROOM SBA D/T LINES. ALL PT CARE NEEDS MET AT THIS TIME. CALL LIGHT WITHIN REACH.
--- NOTE | 2023-09-13 10:40 | NUR ---
PT COMPLETING THE WIPE DOWN FOR SURGERY THIS AFTERNOON WITH CUTTER GAS. GOWN CHANGED. IV ABX INFUSING. PT STATES PAIN TO ABDOMEN IS ABOUT 5/10, DENIES NEED FOR PAIN MEDS. REMAINS NPO. ALL CARE NEEDS MET AT THIS TIME. CALL LIGHT WITHIN REACH.
[2023-09-13] MEDS ORDERED: NALOXONE HCL 0.4 MG SYR IV PRN (11:00)
[2023-09-13] MEDS ORDERED: ondansetron HCL 4 MG/2 ML VIAL IV PRN (11:00)
[2023-09-13] MEDS ORDERED: fentaNYL citrate 100 MCG/2 ML VIAL IV PRN (11:00)
[2023-09-13] MEDS ORDERED: IBLOOD GLUCOSE TEST STRIP 1 EA TEST VI PRN (11:00)
--- NOTE | 2023-09-13 11:23 | NUR ---
ROUNDS. PT NOT IN ROOM. UNABLE TO VISIT. PROVIDED PRAYER. LEFT PRAYER CARD AND CONTACT CARD.
--- NOTE | 2023-09-13 11:30 | NUR ---
PT FAMILY ARRIVED TO FLOOR, SHORTLY AFTER SURGERY ARRIVED TO TAKE PT. IV SWITCHED TO LR/STRAIGHT TUBING. SCDS IN PLACE. ALL PREOP CLEANSE COMPLETED. QUICK HANDOFF GIVEN TO KARTHIK IN SURGERY. FAMILY WENT DOWN WITH PT.
[2023-09-13] MEDS ORDERED: propofoL 200 MG/20 ML VIAL ONE (11:31)
[2023-09-13] MEDS ORDERED: LIDOCAINE HCL 1% 30 ML SDV ONE (11:31)
[2023-09-13] MEDS ORDERED: dexmedeTOMIDine HCl 200 MCG/2 ML VIAL ONE (11:31)
[2023-09-13] MEDS ORDERED: DEXAMETHASONE SOD PHOS 4 MG/ML VIAL ONE ×2 (11:31→11:33)
[2023-09-13] MEDS ORDERED: ondansetron HCL 4 MG/2 ML VIAL ONE (11:31)
[2023-09-13] MEDS ORDERED: ROCURONIUM BROMIDE 50 MG/5 ML SYR ONE (11:31)
[2023-09-13] MEDS ORDERED: SODIUM CHLORIDE 0.9% 60 ML IV ONE (11:32)
[2023-09-13] MEDS ORDERED: KETAMINE in NS 50 MG/5 ML SYR ONE (11:32)
[2023-09-13] MEDS ORDERED: ACETAMINOPHEN 1,000 MG/100 ML VIAL ONE (11:32)
[2023-09-13] MEDS ORDERED: Ropivacaine HCl 0.5% 30 ML VIAL ONE (11:32)
--- NOTE | 2023-09-13 11:46 | NUR ---
PATIENT CURRENTLY IN OR. WILL FOLLOW UP WITH HER AT A LATER TIME.
[2023-09-13] MEDS ORDERED: LACTATED RINGER'S 1,000 ML IV ONE (14:28)
[2023-09-13] MEDS ORDERED: SUGAMMADEX SODIUM 200 MG/2 ML ML ONE (15:03)
--- NOTE | 2023-09-13 15:53 | NUR ---
09/13/23 1553 Joanne,Pratibha 1525 PT ARRIVED TO PACU ON 6L VIA MASK, RESP EVEN AND UNLABORED WITH ORAL AIRWAY IN PLACE. IV IN RIGHT ARM, SMALL AMOUNT OF SWELLING AND BRUISE NOTED ABOVE IV IN RIGHT UPPER FOREARM. NEW IV PLACED IN RIGHT WRIST, BRIST BLOOD RETURN NOTED AND FLUSHES EASILY. 1549 PT SLIGHTLY REACTIVE AND ORAL AIRWAY AND MASK REMOVED. PT EASILY FALLS BACK TO SLEEP WITH SNORING NOTED.
--- NOTE | 2023-09-13 15:55 | PATH ---
[facility] [address] [place], [place] [address] Signed SPECIMEN(S): A CECUM AND TERMINAL ILEUM SPECIMEN SOURCE: A. CECUM AND TERMINAL ILEUM CLINICAL HISTORY: Cecal volvulus. FINAL PATHOLOGIC DIAGNOSIS: Cecum and terminal ileum: - Cecum and terminal ileum with mucosal and submucosal vascular congestion and hemorrhage. - Negative for atypical epithelial features. - Three areas of partial mucosal disruption. - See comment. COMMENT: The clinical history of volvulus is noted and is compatible with the histologic findings. JVR:clv MICROSCOPIC EXAMINATION: Histologic sections of all submitted blocks are examined by light microscopy. These findings, together with the gross examination, support the pathologic diagnosis. GROSS DESCRIPTION: The specimen, labeled and designated "Ashley, Ilir, " and designated on the requisition "cecum and terminal ileum," is received in formalin and consists of one unoriented segment of large bowel that is 12.5 cm in length and has an average internal circumference of 10.5 cm. The terminal ileum is a 6.5 cm in length and has an average internal circumference of 3.5 cm. No appendix is grossly identified. The serosal surface is pink focally congested with adherent membranous tissue. The cecum is partially adherent to the terminal ileum. Upon opening the mucosa is pink and finely granular with three areas of red disruption and discoloration that range in size from 1.4 x 0.9 cm up to 1.7 x 1.5 x 0.5 cm. Sectioning through the areas of discoloration reveals submucosal hemorrhage and are collectively 7 cm from the distal resection margin and 8.5 cm from the proximal PATIENT NAME: ALETA WILEY PATHOLOGY DATE OF : 36 REPORT #: [id number] PHYSICIAN: ERICK PATHOLOGY PCP: ALDAIR BAUER MD REPORT IS CONFIDENTIAL AND NOT TO BE RELEASED WITHOUT AUTHORIZATION [facility] [address] [place], [place] [address] Signed resection margin. The bowel wall is edematous. The terminal ileum has an average wall thickness of 0.7 cm. The large bowel has an average wall thickness of 1.0 cm. Youth Care Worker sections are submitted in five cassettes. Cassette Summary: (A1) proximal resection margin, shave (A2) distal resection margin, shave (A3-A5) areas of mucosal disruption and discoloration FB (under the direct supervision of a pathologist) The Gross Description was prepared using a voice recognition system. The report was reviewed for accuracy; however, sound-alike word errors, addition and/or deletions may occur. If there is any question about this report, please contact Client Services. PERFORMING LABORATORY: Technical component was performed by [facility], [address] [place] [id number] (CLIA# [id number]). Professional interpretation was performed by [facility], [address] [place] [id number] (CLIA#: [id number]). Diagnostician: Kj Brown MD Pathologist Electronically Signed 09/13/2023 Copies: ~ PATIENT NAME: ALETA WILEY PATHOLOGY DATE OF : 36 REPORT #: [id number] PHYSICIAN: ERICK PATHOLOGY PCP: ALDAIR BAUER MD REPORT IS CONFIDENTIAL AND NOT TO BE RELEASED WITHOUT AUTHORIZATION
--- NOTE | 2023-09-13 17:18 | NUR ---
PT ARRIVED TO FLOOR FROM SURGERY AT 1635 WITH MAIL READER. PT IS VERY SLEEPY WILL AWAKEN SLIGHTLY TO VOICE AND FALLS BACK ASLEEP. VS STABLE. FAMILY CURRENTLY AT BEDSIDE AND UPDATE GIVEN. IV FLUIDS RESTARTED. RC CLEAR YELLOW. MIDLINE DSG IS CDI. SCDS IN PLACE. CALL LIGHT PLACED WITHIN REACH. CONT. PULSE OXIMETRY IN PLACE. ALL PT CARE NEEDS MET AT THIS TIME.
--- NOTE | 2023-09-13 18:03 | NUR ---
ISRRAEL NOTIFIED OF ELEVATED BP THIS EVENING SINCE COMING BACK, AT THIS TIME PT SLEEPING AND NOT C/O PAIN. VERY RESTFUL. AT THIS TIME NO TREATMENT FOR BP. ALSO, INFORMED THAT DR. ZAPATA WILL BE HERE TOMORROW TO EVALUATE FOR STONE THAT WAS FOUND ON IMAGING, FAMILY NOTIFIED. POSSIBLY DO LITHO W/ STENT TUESDAY. WILL FOLLOW-UP MORE ON THIS IN MORNING WHEN DR. ZAPATA ROUNDS.
--- NOTE | 2023-09-13 19:45 | NUR ---
REPORT RECEIVED FROM DAY SHIFT RN. PT LYING IN BED RESTING WITH EYES CLOSED. AWAKENS EASILY. ANSWERS QUESTIONS APPROPRIATELY THEN QUICKLY DRIFTS BACK TO SLEEP. POST OP VS OBTAINED. PT DENIES PAIN. REPORTS SHE IS COMFORTABLE. MIDLINE ABD INCISION CDI WITH DRESSING INTACT. CARO PATENT WITH CLEAR YELLOW URINE. SpO2 96% ON RA. HR 70'S. DAUGHTER AT BEDSIDE. DENIES NEEDS. WHITE BOARD UPDATED. CALL LIGHT IN REACH.
--- NOTE | 2023-09-13 21:45 | NUR ---
PATIENT IS RESTING IN BED LAYING ON HER BACK. DENIES ANY PAIN AT THIS TIME. CARO CATH. EMPTIED. DRAINING GOOD WITH CLEAR YELLOW URINE. ALL NECESSARY ITEMS WITHIN REACH.
[2023-09-14] VITALS (9 sets, daily range): BP systolic 128–178; BP diastolic 57–84
--- NOTE | 2023-09-14 00:47 | NUR ---
Patient laying in bed on back. SCDs in place. IV fluids running per orders. Denies pain or discomfort. All necessary items within reach.
--- NOTE | 2023-09-14 02:17 | NUR ---
Patient is resting in bed. Denies any pain at this time. Velez draining well with yellow urine. IV infusing per orders see MAR. Midline dressing is CDI.
[2023-09-14 05:31] LABS: BASOPHILS 0.4 % (0-2); HEMATOCRIT 40.9 % (35.0-50.0); HEMOGLOBIN 13.8 g/dL (12.0-18.0); LYMPHOCYTES 7.7 % (24-44); MCH 30.6 (27-36); MCHC 33.8 g/dl (30-36); MCV 90.5 fl (81-99); MONOCYTES 4.5 % (0-12); NEUTROPHILS 87.4 % (39-80); PLATELET COUNT 196 K/uL (140-440); RBC 4.52 M/ul (4.3-5.7)
[2023-09-14 05:44] LABS: ANION GAP 14.5 (7-21); BUN/CREATININE RATIO 7.14 (6.0-28.6); CALCIUM 8.7 mg/dL (8.5-10.1); CREATININE, SERUM 0.98 mg/dL (0.55-1.02); MAGNESIUM 1.7 mg/dL (1.8-2.4); PHOSPHORUS, INORGANIC 3.4 mg/dL (2.5-4.9); POTASSIUM 3.5 mmol/L (3.5-5.1)
--- NOTE | 2023-09-14 06:12 | OR ---
[facility] [address] [place], [place] [address] Signed DATE OF OPERATION: 09/13/2023 SURGEON: Damaris Romero MD PREOPERATIVE DIAGNOSES: Slightly angulated and tight ileocolonic anastomosis resulting in high-grade partial small-bowel obstruction. POSTOPERATIVE DIAGNOSES: Slightly angulated and tight ileocolonic anastomosis resulting in high-grade partial small-bowel obstruction. PROCEDURES: 1. Completion right colectomy with resection of additional terminal ileum and the distal right colon around to the proximal transverse colon. 2. Isoperistaltic tnzz-fz-slbe ileocolonic anastomosis hand-sewn in two layers. 3. Minimal lysis of adhesions. ESTIMATED BLOOD LOSS: Minimal. 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 We found that at the time of surgery, she had a previous hysterectomy in the fimbriae from her right fallopian tube had caused some scarring circumferentially on the proximal right colon, which was resulting in high-grade partial obstruction, but she got by with that for years because of the liquid stool. Eventually though, the cecum dilated and it finally twisted and became a volvulus. That caused quite a bit of pain and she ended up in the hospital. We took her same-day and the colon was nicely attached to the white line of Toldt. We also know that she has a fairly large kidney stone at the right UVJ and it is chronic and her right kidney is rather large and dilated and the radiologist noted that is chronic as well. When we found that the colon was nicely adherent to the white line of Toldt, we did ileocecectomy and we sewed the small bowel to the mid right colon end to end in two layers hand-sewn. We thought that was sufficient and I could palpate the tip of my finger and thumb on the anastomosis. However, she was slow to pass gas. She moderately distended. She was burping and took on quite a bit of IV fluids as well. We finally caught her up and she was urinating quite well. This morning, she was still distended and I have been talking to Aleta and her family each day about the possibility we might have to go back and redo that anastomosis. In order to do that, we would just do a completion right colectomy and then do a [id number]-fg-rgha Electronically Signed By: DAMARIS ROMERO MD 09/14/23611 PATIENT NAME: ALETA WILEY OPERATIVE REPORT DATE OF : 36 REPORT #: [id number] PHYSICIAN: DAMARIS ROMERO MD PCP: ALDAIR BAUER MD REPORT IS CONFIDENTIAL AND NOT TO BE RELEASED WITHOUT AUTHORIZATION [address] [address] Signed isoperistaltic ileocolonic anastomosis to the proximal transverse colon hand-sewn in two layers. After talking with Aleta today and she really had not made much progress this morning, we decided we would go ahead and schedule her for that following my morning cases. I have explained to Aleta her daughter and granddaughter the nature of that surgery. Of course, we will use the same midline incision. They understand there is risk including, but not limited to bleeding, infection, scarring, change in contour of the skin damage to the bowel, anastomotic leak, incisional hernias and other unforeseen comorbidities. They had expressed understanding and wished to proceed. DESCRIPTION OF PROCEDURE: I met with lAeta, her daughter and granddaughter in our preop area. After we answered the questions, we took Aleta into the operating room and placed in the supine position under general endotracheal tube anesthesia. She has been on Rocephin and Flagyl. A Velez catheter was inserted with return of clear yellow urine without difficulty. She was on preoperative Lovenox as well. She was prepped and draped in the usual sterile fashion after we removed all her tr. We then used a 10 blade knife to cut through her 3-0 Monocryl subcuticular sutures. We then cut each udyrny-lt-zcqzn #1 PDS sutures individually with the scissors and removed them. The fascia was easily opened and we entered the abdomen without difficulty. We did a little irrigation, there is just some mildly serosanguineous fluid. We brought the anastomosis up look at it and it is quite viable with no evidence of any leak. Although we found that it was ever so slightly angulated and a little bit tight. Some of the air was getting through the small bowel into her colon. However, we thought it would be best to go ahead and do a completion right colectomy into a vxla-wi-exog anastomosis about 4 cm in length. Therefore, I took down the white line of Toldt around the hepatic flexure over across the duodenum. We divided the transverse colon about midway between the middle colic artery and hepatic flexure. I gave this nice viable section of the transverse colon for our dhop-qk-jruy anastomosis. The mesentery was taken down with Pean clamps and 0 Vicryl ties over to the terminal ileum and just a small amount of terminal ileum was taken with the linear stapler. We then brought the two pieces of bowel up together and we closed the mesenteric rent with a running 3-0 Vicryl suture. We performed a yqql-lw-xqpx anastomosis hand-sewn in two layers with 3-0 silk and 3-0 Vicryl sutures. Actually measured the anastomosis and it is 4 cm in length. It is widely and palpably patent. All bowel was quite viable. We returned the colon and small bowel back to its position and the abdomen was irrigated and suctioned out until clear. I looked at the suture we put on the sigmoid colon in the left lower quadrant previously this week and it was quite satisfactory. After this, I closed the midline fascia once again with interrupted #2 opvshk-di-belfp PDS sutures. Local anesthetic was injected in the abdominal wall from just below the umbilicus up to the top of the incision. The wound was irrigated and suctioned out until clear. We brought the dermis back together with interrupted 3-0 subcuticular and Monocryl sutures. The skin edges were reapproximated with tr. The wound was covered with dry gauze and tape. After this, our anesthesia provider Electronically Signed By: DAMARIS ROMERO MD 09/14/23 0612 PATIENT NAME: ALETA WILEY OPERATIVE REPORT DATE OF : 36 REPORT #: [id number] PHYSICIAN: DAMARIS ROMERO MD PCP: ALDAIR BAUER MD REPORT IS CONFIDENTIAL AND NOT TO BE RELEASED WITHOUT AUTHORIZATION [address] [address] Signed provided bilateral TAP blocks. A Velez catheter was left in place. Aleta was awakened from her anesthesia, extubated in the OR, and taken to the recovery room in stable condition. Damaris Romero MD ALB/MODL /[id number] cc: MD Damaris Baca MD Copies: ALDAIR BAUER MD, ANDREW L MD ~ Electronically Signed By: DAMARIS ROMERO MD 09/14/23611 PATIENT NAME: ALETA WILEY OPERATIVE REPORT DATE OF : 36 REPORT #: [id number] PHYSICIAN: DAMARIS ROMERO MD PCP: ALDAIR BAUER MD REPORT IS CONFIDENTIAL AND NOT TO BE RELEASED WITHOUT AUTHORIZATION
--- NOTE | 2023-09-14 06:22 | NUR ---
Patient awake and talking. Alert and orietned x 3. New bag of continious fluids hung. Midline dressing CDI. Mild distension, bowel tones present x 4 quadrants. Velez draining with no issues. Denies any pain or nausea at this time.
[2023-09-14] MEDS ORDERED: POTASSIUM CHLORIDE 40 MEQ,LIDOCAINE HCL 1% 40 MG in DEXTROSE 5% 500 ML IV ONE (06:30)
[2023-09-14] MEDS ORDERED: MAGNESIUM SULFATE 3 GM in SODIUM CHLORIDE 0.9% 100 ML IV ONE (06:30)
--- NOTE | 2023-09-14 07:05 | NUR ---
REPORT RECEIVED FROM DIRECTOR OF LEARNING CLARITA FIGUEROA/KIM. PATIENT IS SITTING UPRIGHT IN BED WITH THE TV ON. PATIENT WITH VISITOR AT THE BEDSIDE. CARO CATHETER IS IN PLACE. PATIENT AND FAMILY STATED NO FURTHER NEEDS AT THIS TIME. CALL LIGHT AND PERSONAL BELONGINGS ARE WITHIN REACH.
--- NOTE | 2023-09-14 07:57 | NUR ---
PT WAS LAYING IN BED WATCHING TV THIS AM. PT IS NPO SO SUPERVISOR FINISH END DID NOT OFFER ANYTHING TO EAT OR DRINK. PT REFUSED A CLEAN WASHCLOTH AND STATED SHE WOULD NOT BE NEEDING A BED BATH EITHER. PT HAS NO FURTHER CONCERNS OR COMPLAINTS CALL LIGHT WITHIN REACH
--- NOTE | 2023-09-14 08:40 | NUR ---
PATIENT MORNING MEDICATIONS ADMINISTERED PER THE EMAR. MAGNESIUM SULFATE AND POTASSIUM CHLORIDE ARE INFUSING PER THE ORDERS. PATIENT EDUCATED ON POTASSIUM CHLORIDE AND ENCOURAGED TO LET THE NURSE KNOW ABOUT ANY BURNING. PATIENT WITH DAUGHTER AT THE BEDSIDE. PATIENT AND FAMILY MET WITH THIS MORNING AND CONSENT SIGNED. PATIENT AND FAMILY HAVE NO QUESTIONS AT THIS TIME. PATIENT FULL ASSESSSMENT COMPLETE AND DOCUMENTED IN THE CHART. PATIENT LUNG SOUNDS ARE CLEAR BILATERALLY AND THE PATIENT IS ON ROOM AIR. CARDIAC UNREMARKABLE. NORMAL S1 AND S2 ON AUSCULTATION. RADIAL PULSES ARE STRONG BILATERALLY AND CAPILLARY REFILL IS LESS THAN 3 SECONDS IN THE UPPER EXTREMITITES BILATERALLY. PATIENT BOWEL TONES ARE ACTIVE IN ALL FOUR QUADRANTS. SURGICAL SITE WITH MARITA AND OPEN TO AIR. DRY DRAINAGE NOTED. PATIENT STATED PAIN OF 8/10 AND PRN DILAUDID ADMINISTERED PER THE EMAR. PATIENT SCDS ARE IN PLACE. PATIENT AND FAMILY STATED NO FURTHER NEEDS AT THIS TIME. CALL LIGHT AND PERSONAL BELONGINGS ARE WITHIN REACH.
--- NOTE | 2023-09-14 08:48 | NUR ---
PATIENT GIVEN ICE PACK TO HELP WITH PAIN AT THE MIDLINE INCISION. BARRIER IN PLACE BETWEEN THE SKIN AND THE ICE PACK. IV SITES ARE CLEAN, DRY, AND INTACT AND INFUSING WELL. PATIENT DAUGHTER HAS LEFT THE BEDSIDE. PATIENT STATED NO FURTHER NEEDS AT THIS TIME. CALL LIGHT AND PERSONAL BELONGINGS ARE WITHIN REACH.
--- NOTE | 2023-09-14 08:57 | NUR ---
PT IS LAYING IN BED. PT STATES SHE DOES NOT THINK SHE CAN GET UP TO SI IN THE RELCINER AFTER HER SURGERY. PT STATES SHE WOULD JUST LIKE TO REST. CALL LIGHT WITHIN REACH NO FURTHER COMPLAINTS OR CONCERNS
--- NOTE | 2023-09-14 09:21 | NUR ---
PATIENT RATED PAIN 0/10 AFTER RECEIVING THE PRN DILAUDID DOSE. PATIENT STATED NO FURTHER NEEDS AT THIS TIME. CALL LIGHT AND PERSONAL BELONGINGS ARE WITHIN REACH.
--- NOTE | 2023-09-14 09:30 | NUR ---
Spoke with Gricel. She states she returned to surgery and plans on having stone removal tomorrow. She cont. to plan for dc to home when cleared medically. Initially she stated her daughter would stay with her, she is now saying she wants to go home alone. She feels her daughter is "bossy" and calls her the warden. We discussed she will need some assistance on dc and she states she will consider. I was able to speak with pts granddaughter. They are aware of pts feelings. She states there is a house next door to pts home and her mother, Dariana, plans on staying there to assist pt. I did attempte to discuss with pt if she has thought about the future. She plans on dying at home and does not plan to ever leave her ranch. Family are also aware of this. Pt states she does not have a poa. If decisions need to be made, she would like Treve her grandson to make them.
--- NOTE | 2023-09-14 09:55 | NUR ---
PT WAS LAYING IN BED AND TALKING ON THE PHONE WITH HER SISTER. OYSTER BED WORKER RECORDED VITAL SIGNS AND EMPTIED PT CARO CATH. OUTPUT WAS RECORDED. VITAL SIGNS RECORDED. PT STATES SHE IS FEELING SLUGGISH FROM HER MEDICATIONS BUT STATES NO OTHER COMPLAINTS OR CONCERNS. CALL LIGHT AND PHONE ARE WITHIN REACH
--- NOTE | 2023-09-14 09:58 | NUR ---
RIGHT UPPER ARM IV SITE INFILTRATED. IV SITE REMOVED. CATHETER TIP IS INTACT AND PATIENT TOLERATED WELL WITH REMOVAL. IV SITE IS WRAPPED AND A HOT PACK IS IN PLACE. POTASSIUM INFUSION IS PAUSED UNTIL MAGNESIUM SULFATE INFUSION IS COMPLETE. PATIENT WITH NO COMPLAINTS OF PAIN OR BURNING AT THE SITE. PATIENT STATED NO FURTHER NEEDS AT THIS TIME. CALL LIGHT AND PERSONAL BELONGINGS ARE WITHIN REACH.
--- NOTE | 2023-09-14 10:26 | NUR ---
MAGNESIUM SULFATE COMPLETE. POTASSIUM CHLORIDE NOT INFUSING AT THIS TIME. PATIENT STATED PAIN IS THERE BUT NOT BAD. PATIENT STATED NO FURTHER NEEDS AT THIS TIME. CALL LIGHT AND PERSONAL BELONGINGS ARE WITHIN REACH.
--- NOTE | 2023-09-14 13:36 | NUR ---
PATIENT BOWEL TONES ARE ACTIVE IN ALL FOUR QUADRANTS. PATIENT ABDOMEN IS TENDER WITH MILD DISTENTION. SURGICAL SITE IS OPEN TO AIR AT THE MIDLINE ABDOMEN. SIRGICAL SITE WITH MARITA INTACT AND DRY DRAINAGE NOTED. PATIENT WITH PAIN RATING 6/10. PATIENT WAITING TO TAKE THE TYLENOL PRN DOSE UNTIL LATER. PATIENT WITH VISITOR AT THE BEDSIDE. PATIENT STATED NO FURTHER NEEDS AT THIS TIME.
--- NOTE | 2023-09-14 13:44 | NUR ---
JOCKEY ROOM CUSTODIAN ENTERED THE ROOM TO TAKE VITALS AND RECORD I&OS. PT WAS SPEAKING WITH HER FAMILY IN THE ROOM. PT HAD AN INCREASE IN TEMPERATURE, SHE HAD A THICK BLANKET ON AND SAID SHE FELT WARM EARLIER TODAY BECAUSE HER ROOM WAS HOT. PT REQUESTED A NEW ICEPACK, JOCKEY ROOM CUSTODIAN GAVE HER ONE. PT STATED NO FURTHER COMPLAINTS OR CONCERNS CALL LIGHT AND PHONE WITHIN REACH
--- NOTE | 2023-09-14 14:30 | NUR ---
ROUNDS. PT IN ROOM WITH DAUGHTER AND GRANDDAUGHTER. ALL EXPRESSED POSITIVE ATTITUDE CONSISTENT WITH SITUATION; EXPRESSED HOPE. PROVIDED HOSPITALITY; LISTENED EMPATHETICALLY; FACILITATED STORY-TELLING; PROVIDED PRAYER.
--- NOTE | 2023-09-14 18:55 | NUR ---
KOSHER DIETARY SERVICE SUPERVISOR ASSISTED PT IN GETTING OUT OF BED AND WALKING TWO LAPS AROUND THE MS UNIT. PT REPORTED NO PAIN SAID SHE NEEDED A GAS BUBBLE TO COME OUT. PT HAS FAMILY IN HER ROOM. PT WAS GIVEN 200 ML OF BEEF BROTH. RECORDED IN I&OS. KOSHER DIETARY SERVICE SUPERVISOR EMPTIED CARO CATH BAG AND PERFORMED CATH CARE ON PT. PT WAS ALSO GIVEN A HEATING PAD TO HELP RELEASE SOME OF HER GAS. PT HAS NO FURTHER CONCERNS OR COMPLAINTS. CALL LIGHT IS WITHIN REACH
--- NOTE | 2023-09-14 19:10 | NUR ---
REPORT RECIEVED FROM COLE OTTO. BOARD UPDATED. pt DENIES ANY OTHER NEEDS AT THIS TIME. CALL LIGHT WITHIN REACH.
--- NOTE | 2023-09-14 19:45 | NUR ---
pt C/O 02/14 PAIN. PRN PAIN MED ADMINISTERED. pt DENIES ANY OTHER NEEDS AT THIS TIME. CALL LIGHT WITHIN REACH.
--- NOTE | 2023-09-14 20:30 | NUR ---
ASSESSMENT AND VITAL SIGNS DONE. MIDLINE INCISION OPEN TO AIR WITH MARITA. EDGES WELL APPROXAMATED. NO DRAINAGE NOTED. pt C/O 510 PAIN. EDUCATED pt ON PAIN MANAGEMENT MEASURMENTS. WARM PACK PROVIDED. CARO EMPTIED. IV ASSESSED, WNL. IVF INFUSING PER ORDER. pt DENIES ANY OTHER NEEDS AT THIS TIME. CALL LIGHT WITHIN REACH.
--- NOTE | 2023-09-14 22:00 | NUR ---
pt C/O 510 PAIN. PRN PAIN MEDS ADMINISTERED. pt DENIES ANY OTHER NEEDS AT THIS TIME. CALL LIGHT WITHIN REACH.
[2023-09-15] VITALS (7 sets, daily range): BP systolic 141–169; BP diastolic 67–90
--- NOTE | 2023-09-15 00:15 | NUR ---
pt RESTING IN THE BED. pt DENIES ANY PAIN AT THIS TIME. pt STATES WARM PACK IS HELPING. pt DENIES ANY OTHER NEEDS AT THIS TIME CALL LIGHT WITHIN REACH.
--- NOTE | 2023-09-15 02:15 | NUR ---
pt RESTING IN THE BED. pt STATES PAIN IS TOLERABLE AT THIS TIME. pt DENIES ANY NEEDS AT THIS TIME. CALL LIGHT WITHIN REACH.
--- NOTE | 2023-09-15 04:40 | NUR ---
pt RESTING IN THE BED. pt STATE PAIN IS TOLERABLE AT THIS TIME. IV ASSESSED, WNL. CALL LIGHT WITHIN REACH. MIDLINE INCISION WELL APPROXAMATED. MARITA INTACT.
--- NOTE | 2023-09-15 05:52 | NUR ---
CLARIFIED CARO ORDERS WITH DR ROMERO, PER DR ROMERO OKAY TO LEAVE CARO IN PLACE AND HAVE DR ZAPATA REMOVE IN OR. PRIMARY RN AWARE AND UPDATED.
[2023-09-15] MEDS ORDERED: CEFTRIAXONE/SODIUM CHLORIDE 2 GM/100 ML PIGGYBACK IV SCH (07:00)
[2023-09-15] MEDS ORDERED: ondansetron HCL 4 MG/2 ML VIAL IV PRN (07:45)
[2023-09-15] MEDS ORDERED: NALOXONE HCL 0.4 MG SYR IV PRN (07:45)
[2023-09-15] MEDS ORDERED: HYDROmorphone HCL 1 MG/ML SYR IV PRN (07:45)
[2023-09-15] MEDS ORDERED: IBLOOD GLUCOSE TEST STRIP 1 EA TEST VI PRN (07:45)
[2023-09-15] MEDS ORDERED: diphenhydrAMINE HCL 50 MG/ML VIAL IV PRN (07:45)
[2023-09-15] MEDS ORDERED: fentaNYL citrate 100 MCG/2 ML VIAL IV PRN (07:45)
--- NOTE | 2023-09-15 07:51 | NUR ---
Patient left floor for surgery.
--- NOTE | 2023-09-15 08:11 | NUR ---
RECIEVED PT REPORT AT 0705. PT IS UP IN BED TALKING WITH DAUGHTER IN ROOM. NO SIGNS OF DISCOMFORT. WHILE IN ROOM RECIEVING REPORT DAY SURGERY ARRIVED TO TAKE PT DUE TO ANOTHER CANCELLED SURGERY. PRE-PROCEDURE CHECKLIST DONE LR WITH STRAIGHT TUBING ROCEPHN TAPED TO LR BAG AND SENT WITH DAY SURGERY NURSE. PT IS CURRENTLY OFF THE FLOOR
[2023-09-15] MEDS ORDERED: KETAMINE in NS 50 MG/5 ML SYR ONE (08:15)
[2023-09-15] MEDS ORDERED: LIDOCAINE HCL 1% 30 ML SDV ONE (08:16)
[2023-09-15] MEDS ORDERED: dexmedeTOMIDine HCl 200 MCG/2 ML VIAL ONE (08:16)
[2023-09-15] MEDS ORDERED: SEVOFLURANE 250 ML BTL ONE (08:23)
[2023-09-15] MEDS ORDERED: ACETAMINOPHEN 1,000 MG/100 ML VIAL ONE (08:41)
[2023-09-15] MEDS ORDERED: ondansetron HCL 4 MG/2 ML VIAL ONE (08:41)
--- NOTE | 2023-09-15 10:24 | NUR ---
09/15/23 Christine Fortune PATIENT IS REPOSITIONED UP IN BED. SHE DOES WINCE WITH THIS MOVEMENT. HOB IS ELEVATED AND SHE RETURNS TO RESTING QUIETLY. RESPIRATIONS EVEN AND UNLABORED.
--- NOTE | 2023-09-15 10:26 | NUR ---
ROUNDS. PT GONE FOR PROCEDURE. PROVIDED PRAYER.
--- NOTE | 2023-09-15 11:00 | NUR ---
Spoke with Gricel. She states she tolerated the stone removal well as far as she can remember. She states she also started passing gas today. Daughter, Dariana, present and states she will be going home with pt.
--- NOTE | 2023-09-15 11:07 | NUR ---
pt just came back from day surgery. pt is currently in bed. pt is showing signs of confusion and states that she doesn't know where she is but can state her birthday and names family in room. assessment complete. no other concerns at this time. no other cares needed or requested.
--- NOTE | 2023-09-15 11:09 | NUR ---
PT ARRIVED ON THE UNIT FROM OR AT 1050. RECEIVED REPORT FROM OR NURSE. PT DROWSY AND RESTING IN BED, FAMILY IS IN THE ROOM. DENIES ANY PAIN AT THIS TIME. WILL ROUND ON PT HOURLY. BED ALARM ON AND CALL LIGHT IN REACH.
--- NOTE | 2023-09-15 14:35 | NUR ---
IN TO ROUND ON PATIENT. SHE IS RESTING IN BED, DAUGHTER IS IN THE ROOM. VITALS WNL. DENIES ANY OTHER NEEDS AT THIS TIME. BED ALARM ON AND CALL LIGHT WITHIN REACH. WILL ROUND AGAIN IN AN HOUR.
--- NOTE | 2023-09-15 16:45 | NUR ---
pt told student nurse that she had a pain levelof 7/10 but wheni went in to check patient was resting with eyes closed even unlabored breathing. i asked pt if she was in pain and with a smile she said no. no other cares needed or requested at this time.
--- NOTE | 2023-09-15 16:46 | PATH ---
[facility] [address] [place], [place] [address] Signed SPECIMEN(S): A SMALL BOWEL AND RIGHT COLON SPECIMEN(S): B ADDITIONAL RIGHT COLON SPECIMEN SOURCE: A. SMALL BOWEL AND RIGHT COLON B. ADDITIONAL RIGHT COLON CLINICAL HISTORY: Cecal volvulus FINAL PATHOLOGIC DIAGNOSIS: A. Small bowel and right colon: - Benign small bowel and right colon anastomotic site with suture material, prominent bowel wall acute inflammation, and abscess with adjacent epithelial ulceration. B. Additional right colon: - Segment of benign colon. JVR:clv MICROSCOPIC EXAMINATION: Histologic sections of all submitted blocks are examined by light microscopy. These findings, together with the gross examination, support the pathologic diagnosis. GROSS DESCRIPTION: A. The specimen, labeled and designated "Ashley, Ilir, " and designated on the requisition "terminal ileum and right colon," is received in formalin and consists of segment of right colon and attached small bowel that is previously opened. The bowel wall is 6.5 cm in length and has an average internal circumference of 5.5 cm. The segment of small bowel is a 7.6 cm in length with an average internal circumference of 3.5 cm. The serosal surface is pink with adherent membranous tissue and displays an anastomotic site containing black suture material and red shaggy membranous tissue (inked blue). The mucosal surface corresponding to the anastomotic site is green-red and congested. The remaining mucosa is pink-perez and finely granular. The large and small bowel wall have an average thickness of 0.7 cm. One possible lymph node is grossly identified that is 0.5 cm in greatest dimension. Distribution Field Engineer sections are submitted in five cassettes. Cassette Summary: PATIENT NAME: ALETA RAMIREZ PATHOLOGY DATE OF : 36 REPORT #: [id number] PHYSICIAN: MEDNAX GERI PCP: ALDAIR BAUER MD REPORT IS CONFIDENTIAL AND NOT TO BE RELEASED WITHOUT AUTHORIZATION [facility] [address] [place], [place] [address] Signed (A1-A2) resection margins, shave (A3) vascular root resection margin, shave (A4) anastomotic site (A5) one possible lymph node, submitted whole B. The specimen, labeled and designated "Ilir Ramirez, " and designated on the requisition "additional right colon," is received in formalin and consists of one unoriented segment of previously opened bowel wall that is 4.0 cm in length and has an average internal circumference of 3.5 cm. The serosa is pink focally congested with adherent membranous tissue. The mucosal surface is pink and finely granular. No mass lesions are grossly identified. The bowel wall has an average thickness of 0.7 cm. Distribution Field Engineer sections are submitted in (B1). FB (under the direct supervision of a pathologist) The Gross Description was prepared using a voice recognition system. The report was reviewed for accuracy; however, sound-alike word errors, addition and/or deletions may occur. If there is any question about this report, please contact Client Services. PERFORMING LABORATORY: Technical component was performed by [employer] [facility] [employer], [address] [place] [id number] (CLIA# [id number]). Professional interpretation was performed by [facility], [address] [place] [id number] (CLIA#: [id number]). Diagnostician: Kj Brown MD Pathologist Electronically Signed 09/15/2023 Copies: ~ PATIENT NAME: ALETA RAMIREZ PATHOLOGY DATE OF : 36 REPORT #: [id number] PHYSICIAN: ERICK PATHOLOGY PCP: ALDAIR BAUER MD REPORT IS CONFIDENTIAL AND NOT TO BE RELEASED WITHOUT AUTHORIZATION
--- NOTE | 2023-09-15 17:00 | NUR ---
SPOKE TO DR ZAPATA ABOUT PT CARO DC ORDER AND SHE STATED THATSHE WOULD RECOMMEND THAT IT STAY IN UNTIL TOMORROW BUT TO VERIFY WITH DR ROMERO. RELAYED MESSAGE TO DR ROMERO AND HE SAID THAT WOULD BE FINE. ORDERS ARE PUT IN TO DC CARO CATH TOMORROW AT 0900.
--- NOTE | 2023-09-15 17:26 | OR ---
[facility] [address] [facility] [place], [place] [address] Signed DATE OF OPERATION: 09/15/2023 SURGEON: Rosaura Zapata MD PREOPERATIVE DIAGNOSIS: Actively obstructing 14 mm right distal ureteral calculus with associated severe hydroureteronephrosis. POSTOPERATIVE DIAGNOSIS: Actively obstructing 14 mm right distal ureteral calculus with associated severe hydroureteronephrosis. NAMES OF PROCEDURES: 1. Diagnostic cystoscopy with right retrograde pyelogram. 2. Right semi-rigid ureteroscopy with laser lithotripsy and basket extraction of stone fragments, complicated. 3. Insertion of a 7 x 24 cm double-J ureteral stent into the right collecting system. ANESTHESIA: General. ESTIMATED BLOOD LOSS: Minimal. COMPLICATIONS: None. SPECIMENS: Multiple fragments of the large right ureteral calculus sent to the lab for stone analysis. DRAINS: A 7 x 24 cm double-J ureteral stent inserted into the right collecting system. INDICATIONS FOR PROCEDURE: Ms. Ramirez is a very pleasant 82-year-old female with no prior history of nephrolithiasis, who was admitted to the hospital on September [address] Yayo Sandhu for management of a cecal volvulus. She immediately underwent open repair of the volvulus and it was incidentally noted by Dr. Sandhu at that time that her right kidney appeared to be significantly dilated. She ultimately underwent a redo of her bowel Electronically Signed By: ROSAURA ZAPATA MD 09/15/23 1726 PATIENT NAME: ALETA RAMIREZ OPERATIVE REPORT DATE OF : 36 REPORT #: [id number] PHYSICIAN: ROSAURA ZAPATA MD PCP: ALDAIR BAUER MD REPORT IS CONFIDENTIAL AND NOT TO BE RELEASED WITHOUT AUTHORIZATION [facility] [address] [place], [place] [address] Signed anastomosis. This was performed successfully. Dr. Sandhu then contacted me regarding the right renal dilation. She had undergone a CT scan on September 09, which revealed a very large 14 x 6 mm distal right ureteral calculus with associated severe right hydroureteronephrosis. The patient has been experiencing intermittent back pain for months now, however, she assumed it was related to her spine. Again, she had no prior history of nephrolithiasis and did not recently notice any blood in her urine or any fevers or chills. She ultimately agreed to undergo definitive extraction of her actively obstructing 14 mm right distal ureteral calculus. OPERATIVE FINDINGS: 1. On cystoscopy, there was no evidence of any suspicious masses, lesions, or stones. Bilateral ureteral orifices are in their normal anatomic location. I am able to appreciate a very tiny wisp of urine efflux from the right ureteral orifice. Efflux from the left ureteral orifice is normal. 2. Right retrograde pyelogram reveals a very long and intense defect in the distal right ureter that is consistent with her known obstructing calculus. 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 3. 100% of the stone burden was successfully extracted from the patient's distal right ureter using a holmium laser at 8 hertz and 1.0 joules. All of the stones were successfully extracted from the patient's bladder and placed in a specimen cup to be sent to the lab for evaluation. 4. Due to the presence of significant amount of edema and irritation in the distal right ureter, I chose to place a 7 x 24 cm double-J ureteral stent into the patient's right collecting system. This will remain in place for at least the next two weeks. DESCRIPTION OF PROCEDURE: After informed consent was obtained, the patient was taken back to the operating room. She was transferred from the [facility] to the operating room table, where general anesthesia was induced. She was placed in the dorsal lithotomy position and her genitalia were prepped and draped in standard sterile fashion. Using a 30-degree lens on a 22.5 Samoan introducer, rigid cystoscope was inserted through the urethra and into her bladder under direct visualization. Panendoscopic views of the bladder were then obtained. Please see the above findings. I then turned my attention to the right ureteral orifice. I advanced a cone-tipped catheter to the right ureteral orifice and a right retrograde pyelogram was performed. Please see the above findings. I then drained the patient's bladder and then inserted a semi-rigid ureteroscope into the right distal ureter. I immediately noted the presence of the large stone. The stone was fragmented using a holmium laser at 8 hertz and 1.0 joules. The stone fragmented relatively easily and I was able to retrieve 100% of the stone fragments using a Zero tip basket. All the fragments were initially pulled from the ureter and into the patient's bladder. They were then extracted from the patient's bladder using a Phong Electronically Signed By: ROSAURA ZAPATA MD 09/15/23 1726 PATIENT NAME: ALETA RAMIREZ OPERATIVE REPORT DATE OF : 36 REPORT #: [id number] PHYSICIAN: ROSAURA ZAPATA MD PCP: ALDAIR BAUER MD REPORT IS CONFIDENTIAL AND NOT TO BE RELEASED WITHOUT AUTHORIZATION [place] [id number] Signed syringe. Overall 100% of the stone burden was successfully extracted. I then passed a 0.035 Sensor wire up into the right collecting system using the semi-rigid ureteroscope as a guide. Over the wire, I passed a 7 x 24 cm double-J ureteral stent into the right collecting system. The stent passed easily and I was able to appreciate a proper coil in the right renal pelvis along with a proper coil within the distal bladder. I then again ensured that all the stone fragments have been removed from the patient's bladder. Once this was completed, I removed the cystoscope and inserted an 18-Samoan Velez catheter and filled the balloon with 20 mL. The catheter was then connected to gravity drainage. The procedure was then terminated. The patient tolerated the procedure well without any complication. She will now be transferred to the postanesthesia care unit in stable condition. DISPOSITION: I discussed the details of today's procedure with the patient's family and answered all of their questions. She will now return back to the floor to continue care under the auspices of Dr. Yayo Sandhu. I recommended that the patient take at least five days of either IV or oral antibiotics according to his preference. She is currently on IV Rocephin and IV Flagyl, and this should cover just fine. She may be discharged home on Cipro 500 mg p.o. b.i.d. for at least another three days as an outpatient. Pain control is up to Dr. Sandhu, however, I usually do administer oxycodone 5 mg as needed for ureteroscopy patients. I told the patient's daughter that I will be in touch with them to schedule both the extraction of her indwelling right ureteral stent in a couple of weeks and to have her establish care with me for definitive management of her stress urinary incontinence symptoms. Rosaura Zapata MD AR/MODL /[id number] Copies: ~ Electronically Signed By: ROSAURA ZAPATA MD 09/15/23 1726 PATIENT NAME: ALETA RAMIREZ OPERATIVE REPORT DATE OF : 36 REPORT #: [id number] PHYSICIAN: ROSAURA ZAPATA MD PCP: ALDAIR BAUER MD REPORT IS CONFIDENTIAL AND NOT TO BE RELEASED WITHOUT AUTHORIZATION
--- NOTE | 2023-09-15 18:29 | NUR ---
PT CALLED THE NURSE STATION REQUESTING TO GET UP OUT OF BED. PT STATES THAT PAIN LEVEL IS AT 0 UNLESS SHE COUGHS. PT SAT UP WITHOUT ASSISTANCE AND WALKED WITH FWW TO CHAIR IN ROOM. CURRENTLY IN ROOM WITH FAMILY . HOT WATER WAS REQUESTED AND GIVEN. NO OTHER CARES NEEDED OR REQUESTED AT THIS TIME CALL LIGHT WITHIN REACH
--- NOTE | 2023-09-15 19:05 | NUR ---
REPORT RECIEVED FROM DEB OTTO. pt RESTING IN THE BED. STATLOCK PLACED ON pt LEG. pt DENIES ANY OTHER NEEDS AT THIS TIME. CALL LIGHT WITHIN REACH.
--- NOTE | 2023-09-15 19:30 | NUR ---
SPD ALERT ON CPOX, RN INFORMED
--- NOTE | 2023-09-15 20:30 | NUR ---
ASSESSMENT AND VITAL SIGNS DONE. MIDLINE INCISION OPEN TO AIR, WITH MARITA, EDGES WELL APPROXAMATED. pt DENIES ANY OTHER NEEDS AT THIS TIME. IV ASSESSED, WNL. IVF INFUSING PER ORDER, SEE MAR. BOWEL TONES ACTIVE. CARO CARE DONE. CARO EMPTIED. CALL LIGHT WITHIN REACH.
--- NOTE | 2023-09-15 23:00 | NUR ---
pt DENIES ANY PAIN AT THIS TIME. pt DENIES ANY OTHER NEEDS AT THIS TIME. RR EVEN AND UNLABORED. CALL LIGHT WITHIN REACH.
[2023-09-16] VITALS (9 sets, daily range): BP systolic 130–176; BP diastolic 15–76
--- NOTE | 2023-09-16 01:30 | NUR ---
pt RESTING IN THE BED WITH EYES CLOSED. RR EVEN AND UNLABORED. IV ASSESSED, WNL. CALL LIGHT WITH IN REACH.
--- NOTE | 2023-09-16 04:47 | NUR ---
pt RESTING IN THE BED WITH EYES CLOSED. RR EVEN AND UNLABORED. CALL LIGHT WITHIN REACH.
[2023-09-16 05:36] LABS: BASOPHILS 0.5 % (0-2); EOSINOPHILS 3.7 % (0-6); HEMATOCRIT 37.8 % (35.0-50.0); HEMOGLOBIN 12.5 g/dL (12.0-18.0); MCH 30.5 (27-36); MCV 92.5 fl (81-99); MONOCYTES 7.4 % (0-12); NEUTROPHILS 68.4 % (39-80); PLATELET COUNT 174 K/uL (140-440); RBC 4.09 M/ul (4.3-5.7)
[2023-09-16 05:54] LABS: ANION GAP 10.7 (7-21); BUN/CREATININE RATIO 7.44 (6.0-28.6); CALCIUM 8.7 mg/dL (8.5-10.1); CREATININE, SERUM 0.94 mg/dL (0.55-1.02); MAGNESIUM 1.9 mg/dL (1.8-2.4); PHOSPHORUS, INORGANIC 3.3 mg/dL (2.5-4.9); POTASSIUM 3.7 mmol/L (3.5-5.1)
[2023-09-16] MEDS ORDERED: ACETAMINOPHEN 325 MG TAB PO PRN (06:30)
[2023-09-16] MEDS ORDERED: MAGNESIUM SULFATE 2 GM/50 ML BAG IV ONE (06:30)
--- NOTE | 2023-09-16 07:30 | NUR ---
RECEIVED REPORT FROM CLARITA TORRES. PT AWAKE IN BED, DAUGHTER AT THE BEDSIDE. PT STATES NO NEEDS AT THIS TIME, CALL LIGHT WITHIN REACH.
--- NOTE | 2023-09-16 08:58 | NUR ---
MEDICATIONS GIVEN BY SN COLE OBSERVED BY THIS RN.
[2023-09-16] MEDS ORDERED: PANTOPRAZOLE SODIUM 40 MG TABEC PO SCH (09:00)
[2023-09-16] MEDS ORDERED: CEFTRIAXONE/SODIUM CHLORIDE 2 GM/100 ML PIGGYBACK IV SCH (09:00)
--- NOTE | 2023-09-16 10:03 | NUR ---
PT AWAKE AND ALERT IN BED, DAUGHTER AT THE BEDSIDE. PT AMBULATES TO RESTROOM WITH FWW AND 1PA. PT WEARING SCDs, PT DENIES NUMBNESS OR TINGLING. ABDOMEN MILDLY DISTENDED, TENDER TO PALPATION, BOWEL TONES ACTIVE. PT DENIES NAUSEA AT THIS TIME. PT TOLERATING FULL LIQUID DIET WELL. PT VOIDS WHILE IN RESTROOM, DEPENDS IN PLACE PT STATES SHE HAS HX OF "DRIBBLING". MIDLINE INCISION MARITA REMAIN IN PLACE, EDGES WELL APPROXIMATED, NO REDNESS OR SWELLING. IV SITE ADDED IN THIS ASSESSMENT WAS STARTED BY CLARITA TORRES ON PREVIOUS SHIFT.
--- NOTE | 2023-09-16 11:16 | NUR ---
SPOKE TO PATIENT ABOUT THE DISCHARGE PLAN. PATIENT LIVES ALONE BUT HAS MANY FRIENDS AND FAMILY THAT CAN HELP NEEDED. PATIENT DOES NOT NEED DME BECAUSE PATIENT HAS A WALKER, WHEELCHAIR AND HOSPITAL BED IF NEEDED. PATIENT FEELS GREAT AND THE PATIENT CANNOT THINK OF ANYTHING THAT CASE MANAMENT CAN HELP WITH AT THIS TIME.
--- NOTE | 2023-09-16 11:39 | NUR ---
IN AT 1020 TO ROUND ON PATIENT AND REMOVE CARO, PER ORDER. 20 CC'S REMOVED FROM BALLOON AND CARO REMOVED SUCCESSFULLY. PT IS NOW ON FULL LIQUID DIET, ASKED FOR MENU AND IS LOOKING FORWARD TO LUNCH. PT WAS INSTRUCTED TO USE CALL LIGHT IF SHE NEEDS TO USE THE RESTROOM. PT IS RESTING IN BED AT THIS TIME, DAUGHTER IS IN THE ROOM VISITING. CALL LIGHT WITHIN REACH.
--- NOTE | 2023-09-16 12:29 | NUR ---
UR NOTE 09/16/23 CONTINUES WITH INPATIENT CARE NEEDS
--- NOTE | 2023-09-16 12:43 | NUR ---
IN AT 1020 FOR VITALS AND TEMP WAS 99.2, ROUNDED AT 1230 TO RE-TAKE TEMP AND IT WAS 97.8. PT IS RESTING IN BED, DAUGHTER VISITING IN ROOM. CALL LIGHT WITHIN REACH.
--- NOTE | 2023-09-16 14:22 | NUR ---
PT RESTING IN BED, DAUGHTERS AT THE BEDSIDE. CALL LIGHT WITHIN REACH.
--- NOTE | 2023-09-16 15:32 | NUR ---
PT BACK TO ROOM FROM WALKING A LAP AROUND THE UNIT. PT STATES PAIN IS 8/10 AFTER WALKING AND STATES IT "FEELS LIKE GAS". ABDOMEN REMAINS MILDLY DISTENDED AND TENDER TO PALPATION, SPECIFICALLY TO THE RIGHT SIDE. MIDLINE INCISION UNCHANGED FROM MORNING ASSESSMENT. PT STATES NO FURTHER NEEDS AT THIS TIME, FAMILY AT THE BEDSIDE, CALL LIGHT WITHIN REACH.
[2023-09-16] MEDS ORDERED: ACETAMINOPHEN 500 MG TAB PO PRN (17:15)
[2023-09-16] MEDS ORDERED: IBUPROFEN 600 MG TAB PO PRN (17:15)
--- NOTE | 2023-09-16 17:35 | NUR ---
PT AND FAMILY HAS QUESTIONS REGARDING PAIN MEDICATION, EDUCATION ON NEW MEDICATIONS ORDERED. PT AND FAMILY VERBALIZE UNDERSTANDING. PT STATES NO FURTHER NEEDS AT THIS TIME, CALL LIGHT WITHIN REACH.
--- NOTE | 2023-09-16 18:32 | NUR ---
SUPERINTENDENT POWER NOTIFIES THIS RN THAT PT DECLINES SHAMPOO CAP AT THIS TIME.
--- NOTE | 2023-09-16 19:30 | NUR ---
PT ASSISTED TO THE TOILET TO GET CLEANED UP FROM A ACCIDENT BM, SOFT/LOOSE, SBA FWW AND IV POLE, PT BACK TO BED, NEW GOWN AND LINENS IN PLACE, VS TAKEN
--- NOTE | 2023-09-16 20:01 | NUR ---
PT BACK TO BED AFTER GETTING UP AND HAVING A BM. REPLACED IV DRESSING, SOILED. PT AWARE SHE ISN'T ON A FLUID RESTRICTION. ABD INCISION C/D/I, MARIAT. @ 1910 RECEIVED REPORT FROM VAHID, PT WAS IN BED AT THAT TIME, WITH 2 DAUGHTERS AT BEDSIDE.
--- NOTE | 2023-09-16 20:41 | NUR ---
PT'S FAMILY TO RN STATION, REPORTS PT IS HAVING PAIN TO ABD. PRN ADMINISTERED. SEE EMAR. PT DENIES FURTHER NEEDS AT THIS TIME. CALL LIGHT IN REACH.
--- NOTE | 2023-09-16 21:55 | NUR ---
assisted pt up to void, sba fww iv pole, back to bed
--- NOTE | 2023-09-16 22:40 | NUR ---
CHECKED ON PT, SL SLEEPING, WAKES EASILY STATES PAIN IS MUCH BETTER, "2"
[2023-09-17] VITALS (7 sets, daily range): BP systolic 128–179; BP diastolic 64–95
--- NOTE | 2023-09-17 01:33 | NUR ---
CHECKED ON PT, AWAKE, REQUESTED BATHROOM, INDEPENDENTLY OUT OF BED, ASSISTED WITH IV POLE, TO BATHROOM, VOIDED, CHANGED INCONT BRIEF, BACK TO BED, CHANGED GOWN, SWEATY, WELL DAMP PILLOW CASE. INDEPENDENTLY INTO BED, WARM BLANKET PROVIDED. S/R UP PER PT REQUEST. MIDLINE INCISION C/D/I MARITA. DENIES NEED FOR PAIN MEDICATION.
--- NOTE | 2023-09-17 03:52 | NUR ---
ROUNDED, RESP EVEN UNLABORED, EYES CLOSED.
--- NOTE | 2023-09-17 04:55 | NUR ---
PT ASSISTED TO THE TOILET, SBA FWW AND IV POLE, VOID AND BM NOTED, BACK TO BED, VS TAKEN
--- NOTE | 2023-09-17 06:43 | NUR ---
PT A/O. MIDLINE IRENE, MARITA INTACT. VOIDING WELL, 2 BOWEL MOVEMENTS THIS SHIFT, PASSING LARGE AMOUNTS GAS. MOTRIN FOR PAIN
--- NOTE | 2023-09-17 07:10 | NUR ---
RECEIVED REPORT FROM CLARITA BURGER. PT RESTING IN BED WITH EYES CLOSED, BREATHING EVEN AND UNLABORED. CALL LIGHT WITHIN REACH.
--- NOTE | 2023-09-17 08:38 | NUR ---
PATIENT WAS IN THE BATHROOM WHEN I WALKED IN AND JUST NEEDED HELP GETTING PLUGGED IN. SHE WAS INDEPENDENT.
--- NOTE | 2023-09-17 09:18 | NUR ---
PT AWAKE IN BED WITH DAUGHTER AT THE BEDSIDE. PT CONTINUES TO AMBULATE USING SBA AND FWW. PT REQUESTS TO NOT HAVE SCDs ON D/T WANTING TO GO FOR A WALK. PT CONTINUES TO TOLERATE FULL LIQUID DIET WELL. ABDOMEN SOFT, TENDER, BOWEL TONES ACTIVE. MIDLINE INCISION C/D/I, EDGES WELL APPROXIMATED, MARITA IN PLACE, NO REDNESS/SWELLING. PT STATES NO QUESTIONS OR NEEDS AT THIS TIME, CALL LIGHT WITHIN REACH.
--- NOTE | 2023-09-17 11:28 | NUR ---
PT BACK TO BED AFTER HAVING BM AND VOID. PT STATES PAIN IS "NOT BAD" AT THIS TIME. PT LYING IN BED VISITING WITH FAMILY, CALL LIGHT WITHIN REACH.
--- NOTE | 2023-09-17 13:25 | NUR ---
PT LYING IN BED AWAKE WITH FAMILY AT THE BEDSIDE. PT STATES SHE WALKED TWO LAPS AROUND THE UNIT. PT STATES NO FURTHER NEEDS AT THIS TIME, CALL LIGHT WITHIN REACH.
--- NOTE | 2023-09-17 15:24 | NUR ---
PT VISITING WITH DAUGHTER AT THE BEDSIDE. PT AMBULATES TO RESTROOM INDEPENDENTLY WITHOUT FWW. IVF DC'D PER ORDER. PT STATES NO FURTHER NEEDS AT THIS TIME, CALL LIGHTS WITHIN REACH.
--- NOTE | 2023-09-17 17:15 | NUR ---
PT DECLINES PAIN MEDICATION AT THIS TIME. CALL LIGHT WITHIN REACH.
--- NOTE | 2023-09-17 18:26 | NUR ---
PT SITTING UP IN BED VISITING WITH DAUGHTERS. PT REQUESTS PRN PAIN MEDICATION, GIVEN. PT DENIES NAUSEA AT THIS TIME. PT STATES NO FURTHER NEEDS AT THIS TIME, CALL LIGHT WITHIN REACH.
[2023-09-17] MEDS ORDERED: MELATONIN 3 MG TAB PO PRN (19:00)
--- NOTE | 2023-09-17 20:00 | NUR ---
Patient awake in bed, alert and oriented x4, no acute distress. Patient reports tolerable pain at this time. Family at bedside visiting. No current needs, personal supplies and call light within reach.
[2023-09-17] MEDS ORDERED: TRIMETHOPRIM/SULFAMETHOXAZOLE 1 EA TAB PO SCH (21:00)
--- NOTE | 2023-09-18 01:13 | NUR ---
REPORT RECEIVED. THIS RN TO ASSUME CARE. PT LYING IN BED, AWAKENS WHEN DOOR OPENS. DENIES NEEDS. CALL LIGHT IN REACH.
--- NOTE | 2023-09-18 04:43 | NUR ---
CALL LIGHT ANSWERED. PT HAD SMALL SOFT BM. SAMPLE SENT TO LAB. PT DENIES PAIN OR NAUSEA. MIDLINE INCISION WELL APPROXIMATED WITH MARITA INTACT. NO REDNESS OR DRAINAGE NOTED. BOWEL TONES ACTIVE. ABD SOFT. VS AND I&O OBTAINED. NO FURTHER NEEDS.
[2023-09-18 05:22] VITALS: BP 163/77
--- NOTE | 2023-09-18 06:45 | NUR ---
daughter in room. pt states she has 8/10 lower back pain. prn pain med provided. gown changed. pt states no other needs at this time. call light in reach.
--- NOTE | 2023-09-18 07:05 | NUR ---
REPORT RECEIVED FROM NIGHT RN, ALL QUESTIONS ANSWERED. PT AWAKE IN BED, VISITORS AT BEDISDE. PT DENIES NEEDS AT THIS TIME. CALL LIGHT IN REACH.
--- NOTE | 2023-09-18 08:44 | NUR ---
MORNING ASSESSMENT COMPLETE. PT AWAKE IN BED, FINISHED BREAKFAST. DAUGHTER AT BEDSIDE. PT C/O BACK PAIN, MEDICATED WITH TYLENOL THIS AM. PT DENIES NEED FOR INTERVENTION AT THIS TIME. DISCUSSED PAIN MANAGEMENT AND MEDICATION SCHEDULES. ACTIVE BOWEL TONES, PT REPORTS BOWEL MOVEMENTS. PT DENIES NAUSEA, ABLE TO EAT 50% BREAKFAST. MIDLINE INCISION CDI, MARITA INTACT. PT DENIES FURTHER NEEDS AT THIS TIME. CALL LIGHT IN REACH.
[2023-09-18 09:13] VITALS: BP 148/72
--- NOTE | 2023-09-18 12:12 | NUR ---
ROUNDING WITH PT, PT DENIES NEED FOR PAIN INTERVENTION, DISCUSSED PAIN MEDICATION SCHEDULING AND PLAN OF CARE FOR AMBULATION TODAY. PT AND FAMILY VERBALIZED UNDERSTANDING. PT DENIES FURTHER NEEDS AT THIS TIME. LUNCH AT BEDSIDE. FAMILY IN ROOM AND CALL LIGHT IN REACH.
--- NOTE | 2023-09-18 13:20 | NUR ---
PT AMBULATED HALLWAY WITH FWW. TOLERATED WELL. PT UP TO RECLINER IN ROOM. PT DENIES NEED FOR PAIN MEDICATION AT THIS TIME. PT DENIES FURTHER NEEDS AT THIS TIME. CALL LIGHT IN REACH. FAMILY AT BEDSIDE.
[2023-09-18 13:46] VITALS: BP 136/58
--- NOTE | 2023-09-18 14:59 | NUR ---
PT RESTING IN BED AWAKE, DENIES NEED FOR PAIN INTERVENTION OR FURTHER NEEDS AT THIS TIME. CALL LIGHTIN REACH. FAMILY AT BEDSIDE.
--- NOTE | 2023-09-18 17:16 | NUR ---
PT SITTING UP IN BED, DINNER AT BEDSIDE. PT DENIES NEED FOR PAIN MEDICATION AT THIS TIME. PT DENIES FURTHER NEEDS AT THIS TIME. CALL LIGHT IN REACH.
[2023-09-18 17:53] VITALS: BP 156/89
--- NOTE | 2023-09-18 19:25 | NUR ---
Patient resting in bed at shift change. Daughter at bedside. C/O pain in abdomen. PRN tylenol given. All necessary items within reach.
[2023-09-18 21:13] VITALS: BP 152/68
--- NOTE | 2023-09-18 21:15 | NUR ---
Patient given HS medication. F/U pain assessment. Pain within acceptable range. Assessment Complete. All needed items withing reach.
--- NOTE | 2023-09-18 21:53 | NUR ---
PT CALLS FOR ASSISTANCE WITH THE URINAL, PROVIDED. PT ASSISTED WITH PUTTING BIPAP ON. PT STATES NO OTHER NEEDS. CALL LIGHT IN REACH.
--- NOTE | 2023-09-19 00:33 | NUR ---
Patient resting in bed with eyes closed. All necessary items within reach.
--- NOTE | 2023-09-19 02:37 | NUR ---
Respriations confirmed even and unlabored. Patient denies any pain or discomfort at this time. Resting in bed, laying on back.
[2023-09-19 05:35] VITALS: BP 158/80
--- NOTE | 2023-09-19 05:44 | NUR ---
Patient laying awake in bed. Emptied 400ml urine from hat in bathroom. Urine with pink ting in color. Midline incision with no s/sx of infection. Incision is well approximated. No noted complaints of pain or discomfort at this time. All needed items within reach.
--- NOTE | 2023-09-19 07:15 | NUR ---
Report received from night RN - pt resting in bed awake with daughter at bedside. Requests tylenol for 6/10 pain.
[2023-09-19] MEDS ORDERED: CIPRO500 MG PO (08:48)
--- NOTE | 2023-09-19 09:00 | NUR ---
RN IN ROOM TO PROVIDE DC INSTRUCTIONS - ALL QUESTIONS ANSWERED. EVERY OTHER STAPLE REMOVED FROM MIDLINE INCISION, NO DIFFICULTY OR SIGN OF POOR HEALING.
[2023-09-19 15:19] LABS: CALCULI MASS 188 mg (())
[2023-09-20 05:39] LABS: C. DIFF TOXIN B GENE TCDB,PCR Not Detected (())
--- NOTE | 2023-09-20 07:01 | DS ---
[facility] [address], [place] [address] Signed ADMISSION DATE: 09/09/2023 DISCHARGE DATE: 09/19/2023 FINAL DIAGNOSES: 1. Cecal volvulus. 2. Right ureterovesical junction stone. PROCEDURES: 1. Right hemicolectomy on 09/09/2023. 2. Right completion colectomy on 09/13/2023. 3. Lithotripsy and placement of right ureteral stent per Dr. Lerner. 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 She told us later that she has been having some right flank pain that she associated with her previous back surgery. When she came to us, she actually had swelling in the right lower quadrant was having trouble throughout the night. It did not fernando in the morning, so she came to emergency room for evaluation. The CT scan revealed her cecal volvulus associated with scar tissue from a previous hysterectomy many years ago. I had admitted her as a general surgeon on-call. We also saw a stone at the right UVJ with rather significant right hydroureter and hydronephrosis. In that regard, we consulted our urologist, Dr. Angie Lerner. HOSPITAL COURSE: Aleta was admitted as above and taken to the operating room that same day. She underwent an ileocecectomy with an end-to-end anastomosis for the cecal volvulus. Initially, she did well, but she was having some trouble opening up that anastomosis. We took her back on 09/13/2023 and performed a completion of right colectomy and did an isoperistaltic [id number] anastomosis from the ileum to the proximal transverse colon. That worked out much better. In the meantime, Dr. Lerner was able to come and perform lithotripsy and removed her stone and placed a right ureteral stent. Aleta has been slowly, but surely regaining her GI function in her activity levels. I was out of town for a couple of days and therefore returned today. She is now on a regular diet. She has been switched over to p.o. Bactrim. Dr. Lerner was wanting three days of Cipro at the time of discharge. She has been ambulating, passing gas and having good bowel movements. Due to her progressing, she is going to be discharged to home with her family. DISCHARGE PLANS AND MEDICATIONS: Aleta has been using Tylenol as needed for pain. She has not used any NSAIDs now or in the future because of her kidney issues. She will be seeing Dr. Lerner here in a Electronically Signed By: DAMARIS ROMERO MD 09/20/23 0701 PATIENT NAME: ALETA WILEY DISCHARGE SUMMARY DATE OF : 36 REPORT #: [id number] PHYSICIAN: DAMARIS ROMERO MD PCP: ALDAIR FARMER MD REPORT IS CONFIDENTIAL AND NOT TO BE RELEASED WITHOUT AUTHORIZATION [address] [address] Signed week or two for followup for the right ureteral stent. We are going to remove one-half of her tr today. I will have her back in my office in a week or so for followup to remove her tr as well. She is going to follow a regular diet at home. She is welcome to perform her activities of daily living including walking up and down stairs and showering bathing as usual. She is not to do any heavy pushing, pulling, or lifting over about 20 pounds. I have reviewed this with Aleta several times along with her daughter and granddaughter. They have expressed understanding and agreed to above plan. Damaris Romero MD ALB/MODL /[id number] cc: Aldair Farmer MD Patient chart Damaris Romero MD Copies: ALDAIR FARMER MD, ANDREW L MD ~ Electronically Signed By: DAMARIS ROMERO MD 09/20/23 0701 PATIENT NAME: ALETA WILEY DISCHARGE SUMMARY DATE OF : 36 REPORT #: [id number] PHYSICIAN: DAMARIS RMOERO MD PCP: ALDAIR FARMER MD REPORT IS CONFIDENTIAL AND NOT TO BE RELEASED WITHOUT AUTHORIZATION
== END 2023-09-19 09:50 | disposition home or self-care (01) | DRG 330 ==
LOC: ED 08:27 → MS 11:11
PROVIDERS: Emergency Medicine; Surgery; Urology; ADMIT Colon & Rectal Surgery; ATTEND Colon & Rectal Surgery
PROC: 0DBH0ZZ Excision of Cecum, Open Approach (ICD-10-PCS; principal; 2023-09-09 12:00)
PROC: 0DTL0ZZ Resection of Transverse Colon, Open Approach (ICD-10-PCS; 2023-09-13)
PROC: 0DTB0ZZ Resection of Ileum, Open Approach (ICD-10-PCS; 2023-09-13)
PROC: 0T768DZ Dilation of Right Ureter with Intraluminal Device, Via Natural or Artificial Opening Endoscopic (ICD-10-PCS; 2023-09-15)
PROC: BT1D1ZZ Fluoroscopy of Right Kidney, Ureter and Bladder using Low Osmolar Contrast (ICD-10-PCS; 2023-09-15)
PROC: 0TC68ZZ Extirpation of Matter from Right Ureter, Via Natural or Artificial Opening Endoscopic (ICD-10-PCS; 2023-09-15)
DX: K56.2 Volvulus (principal); N13.30 Unspecified hydronephrosis; N20.1 Calculus of ureter; K56.600 Partial intestinal obstruction, unspecified as to cause; Z98.890 Other specified postprocedural states; Z90.49 Acquired absence of other specified parts of digestive tract; Z85.3 Personal history of malignant neoplasm of breast; Z90.710 Acquired absence of both cervix and uterus; Z88.5 Allergy status to narcotic agent; Z79.01 Long term (current) use of anticoagulants; Z86.16 Personal history of COVID-19; Z86.718 Personal history of other venous thrombosis and embolism
CPT/HCPCS: 00811; 00840; 00910; 36415; 74177; 74420; 76942; 80048; 80053; 81001; 82365; 83735; 84100; 85025; 87493; 88307; 93005; 93010; 99285-25; A9270; C1769; C2617; C9113; J0131; J0696; J1100; J1170; J1650; J2001; J2405; J2543; J2704; J2795; J3010; J3475; J3480; J3490; J7030; J7060; J7121; Q9967

== ENCOUNTER 2024-09-22 14:12 | Observation (INO) | payer MEDICARE, OTHER ==
[~2024-09-22] VITALS: Ht 160 cm; Wt 61.1 kg
[~2024-09-22 14:12] MED LIST changes: +CIPRO500 MG PO
[2024-09-22] MEDS ORDERED: ECOTRIN325 MG PO (14:30)
[2024-09-22] MEDS ORDERED: HYDROCODON-ACE1 EAC8 PO (14:30)
[2024-09-22 14:41] LABS: BASOPHILS 0.5 % (0-2); EOSINOPHILS 3.5 % (0-6); HEMATOCRIT 36.3 % (35.0-50.0); HEMOGLOBIN 12.1 g/dL (12.0-18.0); LYMPHOCYTES 28.8 % (24-44); MCHC 33.2 g/dl (30-36); MCV 93.1 fl (81-99); MONOCYTES 7.1 % (0-12); NEUTROPHILS 60.1 % (39-80); PLATELET COUNT 183 K/uL (140-440); RBC 3.89 M/ul (4.3-5.7); RDW 13.2 (10.5-15.0)
[2024-09-22 14:49] LABS: ALBUMIN 2.9 g/dL (3.4-5.0); ALBUMIN/GLOBULIN RATIO 0.74 (1.1-2.4); ANION GAP 11.6 (7-21); BILIRUBIN, TOTAL 0.5 mg/dL (0.2-1.0); BUN/CREATININE RATIO 27.95 (6.0-28.6); CALCIUM 9.1 mg/dL (8.5-10.1); CREATININE, SERUM 0.93 mg/dL (0.55-1.02); POTASSIUM 3.6 mmol/L (3.5-5.1); PROTEIN, TOTAL 6.8 g/dL (6.4-8.2)
[2024-09-22] MEDS ORDERED: CLOPIDOGREL BISULFATE 75 MG TAB PO ONE (17:15)
[2024-09-22] MEDS ORDERED: LACTATED RINGER'S 1,000 ML IV SCH (17:30)
[2024-09-22] MEDS ORDERED: ondansetron HCL 4 MG/2 ML VIAL IV PRN (17:30)
[2024-09-22] MEDS ORDERED: ACETAMINOPHEN 325 MG TAB PO PRN (17:30)
[2024-09-22 18:10] LABS: CHOLESTEROL/HDL RATIO 3.1; TSH, 3RD GENERATION 1.249 uIU/mL (0.358-3.740)
[2024-09-22 18:46] VITALS: BP 172/86
[2024-09-22 18:54] VITALS: BP 172/86
[2024-09-22 21:51] VITALS: BP 140/66
[2024-09-22 21:52] VITALS: BP 140/66
[2024-09-23] VITALS (8 sets, daily range): BP systolic 124–149; BP diastolic 55–74
[2024-09-23 05:26] LABS: BASOPHILS 0.6 % (0-2); EOSINOPHILS 4.6 % (0-6); HEMATOCRIT 31.7 % (35.0-50.0); HEMOGLOBIN 10.7 g/dL (12.0-18.0); LYMPHOCYTES 28.5 % (24-44); MCH 31.4 (27-36); MCHC 33.9 g/dl (30-36); MCV 92.7 fl (81-99); MONOCYTES 7.4 % (0-12); NEUTROPHILS 58.9 % (39-80); PLATELET COUNT 180 K/uL (140-440); RBC 3.42 M/ul (4.3-5.7); RDW 13.1 (10.5-15.0)
[2024-09-23 05:39] LABS: ANION GAP 13.7 (7-21); BUN/CREATININE RATIO 16.66 (6.0-28.6); CALCIUM 8.7 mg/dL (8.5-10.1); CREATININE, SERUM 0.78 mg/dL (0.55-1.02); MAGNESIUM 1.8 mg/dL (1.8-2.4); POTASSIUM 3.7 mmol/L (3.5-5.1)
[2024-09-23 05:57] LABS: INR 1.09 (0.80-1.30)
[2024-09-23] MEDS ORDERED: ASPIRIN 81 MG CHEW PO SCH (08:00)
[2024-09-23] MEDS ORDERED: PHARMACY RENAL DOSE ADJUSTMENT 1 DOSE MISC PO SCH (12:00)
[2024-09-23] MEDS ORDERED: ONDANSETRON ODT4 MG PO (13:25)
[2024-09-23] MEDS ORDERED: LIPITOR40 MG PO (15:08)
[2024-09-23] MEDS ORDERED: ASPIRIN81 MG PO (15:09)
[2024-09-23] MEDS ORDERED: PLAVIX75 MG PO (15:12)
[2024-09-23] MEDS ORDERED: CLOPIDOGREL BISULFATE 75 MG TAB PO SCH (15:30)
[2024-09-23] MEDS ORDERED: ATORVASTATIN 40 MG TAB PO SCH (17:00)
== END 2024-09-23 16:20 | disposition short-term general hospital (02) ==
LOC: ED 14:12 → MS 14:14
PROVIDERS: Emergency Medicine; ADMIT Student in an Organized Health Care Education/Training Program; ATTEND Student in an Organized Health Care Education/Training Program
DX: I65.21 Occlusion and stenosis of right carotid artery (principal); R29.810 Facial weakness; R47.81 Slurred speech; Z66 Do not resuscitate; Z96.641 Presence of right artificial hip joint; Z88.5 Allergy status to narcotic agent; Z79.82 Long term (current) use of aspirin
CPT/HCPCS: 36415; 70450; 70496; 70498; 80048; 80053; 80061; 83036; 83735; 84439; 84443; 85025; 85610; 97110; 97161; 99285-25; A9270; G0378; J7121; Q9967

== ENCOUNTER 2024-12-21 08:39 | Emergency (ER) | payer MEDICARE, OTHER | END 2024-12-21 11:48 | disposition home or self-care (01) | LOC: ED 08:39 | DX: M54.81 Occipital neuralgia (principal); Z88.5 Allergy status to narcotic agent; Z79.02 Long term (current) use of antithrombotics/antiplatelets; Z79.899 Other long term (current) drug therapy; Z86.73 Personal history of transient ischemic attack (TIA), and cerebral infarction without residual deficits ==

== ENCOUNTER 2025-02-27 08:18 | Emergency (ER) | payer MEDICARE, OTHER ==
[~2025-02-27] VITALS: Ht 160 cm; Wt 51.0 kg
[~2025-02-27 08:18] MED LIST changes: +ASPIRIN81 MG PO; +ECOTRIN325 MG PO; +HYDROCODON-ACE1 EAC8 PO; +LIPITOR40 MG PO; +ONDANSETRON ODT4 MG PO; +PLAVIX75 MG PO; +TROSPIUM CHLORI20 MG PO
[2025-02-27] MEDS ORDERED: HYDROCODONE/ACETA 5/325 TAB PO ONE (08:45)
[2025-02-27] MEDS ORDERED: ATORVASTATIN CA80 MG (08:51)
[2025-02-27] MEDS ORDERED: CLOPIDOGREL75 MG PO (08:51)
[2025-02-27 10:13] VITALS: BP 159/72
== END 2025-02-27 10:15 | disposition home or self-care (01) ==
LOC: ED 08:18
DX: M25.561 Pain in right knee (principal); M25.551 Pain in right hip; Z79.899 Other long term (current) drug therapy; Z88.5 Allergy status to narcotic agent
CPT/HCPCS: 73502; 73560; 99283